=== PATIENT | male | born 1935 | race Caucasian/White ===

== ENCOUNTER 2018-05-04 14:45 | Emergency (ER) | payer OTHER, MEDICARE ==
[2018-05-04 15:18] LABS: BASO % 0.3 % (0.0-1.0); EOS # 0.3 10^3/uL (0.0-0.50); EOS % 4.2 % (0.0-3.0); HEMATOCRIT 41.6 % (42.0-52.0); HEMOGLOBIN 14.2 g/dl (13.5-17.5); IMMATURE GRANULOCYTE % 0.3 % (0-3.0); LYMPH # 2.4 10^3/uL (1.5-4.5); LYMPH % 39.5 % (24.0-44.0); MEAN CORPUSCULAR HEMOGLOBIN 31.4 pg (27.0-33.0); MEAN CORPUSCULAR HGB CONC 34.1 g/dl (32.0-36.5); MONO # 0.6 10^3/uL (0.0-0.8); MONO % 10.4 % (0.0-5.0); NEUTROPHILS # 2.8 10^3/uL (1.8-7.7); NEUTROPHILS % 45.3 % (36.0-66.0); PLATELET COUNT, AUTOMATED 255 10^3/uL (150-450); RED BLOOD COUNT 4.52 10^6/uL (4.30-6.10); RED CELL DISTRIBUTION WIDTH 12.9 % (11.5-14.5); WHITE BLOOD COUNT 6.2 10^3/uL (4.0-10.0)
[2018-05-04 15:30] LABS: ALBUMIN 3.6 GM/DL (3.2-5.2); ALBUMIN/GLOBULIN RATIO 1.06 (1.00-1.93); ALKALINE PHOSPHATASE 83 U/L (45-117); ALT/SGPT 19 U/L (12-78); ANION GAP 10 MEQ/L (8-16); AST/SGOT 22 U/L (7-37); BILIRUBIN,DIRECT 0.1 MG/DL (0.0-0.2); BILIRUBIN,TOTAL 0.5 MG/DL (0.2-1.0); BLOOD UREA NITROGEN 21 MG/DL (7-18); CALCIUM LEVEL 8.3 MG/DL (8.8-10.2); CARBON DIOXIDE LEVEL 25 MEQ/L (21-32); CHLORIDE LEVEL 108 MEQ/L (98-107); CPK CREATINE PHOSPHOKINASE 222 U/L (39-308); CREATININE FOR GFR 1.74 MG/DL (0.70-1.30); GLUCOSE, FASTING 114 MG/DL (70-100); MB/CK RELATIVE INDEX 1.71 (< OR =4); SODIUM LEVEL 143 MEQ/L (136-145); TROPONIN I < 0.02 NG/ML (< 0.10)
[2018-05-04] MEDS: DOXYCYCLINE HYCLATE 100 MG TAB PO (16:14)
[2018-05-04 17:41] LABS: CPK CREATINE PHOSPHOKINASE 205 U/L (39-308); MB/CK RELATIVE INDEX 1.66 (< OR =4); TROPONIN I < 0.02 NG/ML (< 0.10)
== END 2018-05-04 17:58 | disposition home or self-care (01) ==
LOC: M ED 14:45
DX: J01.90 Acute sinusitis, unspecified (principal); I12.9 Hypertensive chronic kidney disease with stage 1 through stage 4 chronic kidney disease, or unspecified chronic kidney disease; N18.3 Chronic kidney disease, stage 3 (moderate); M25.512 Pain in left shoulder
CPT/HCPCS: 71045

== ENCOUNTER 2019-09-27 10:41 | Inpatient (IN) | payer MEDICARE, OTHER ==
[~2019-09-27] VITALS: Ht 162.6 cm; Wt 57.6 kg
[~2019-09-27 10:41] MED LIST: DOXY100C37 PO
[2019-09-27 11:06] LABS: BASO % 0.4 % (0.0-1.0); EOS # 0.2 10^3/uL (0.0-0.5); EOS % 2.6 % (0.0-3.0); HEMATOCRIT 43.3 % (42.0-52.0); HEMOGLOBIN 14.4 g/dl (13.5-17.5); LYMPH # 2.3 10^3/uL (1.5-5.0); MEAN CORPUSCULAR HEMOGLOBIN 30.6 pg (27.0-33.0); MEAN CORPUSCULAR HGB CONC 33.3 g/dl (32.0-36.5); MEAN CORPUSCULAR VOLUME 91.9 fl (80.0-96.0); MONO # 0.7 10^3/uL (0.0-0.8); MONO % 8.5 % (0.0-5.0); NEUTROPHILS # 4.9 10^3/uL (1.5-8.5); NEUTROPHILS % 60.1 % (36.0-66.0); PLATELET COUNT, AUTOMATED 263 10^3/uL (150-450); RED BLOOD COUNT 4.71 10^6/uL (4.30-6.10); WHITE BLOOD COUNT 8.1 10^3/uL (4.0-10.0)
[2019-09-27 11:32] LABS: ALT/SGPT 37 U/L (12-78); BILIRUBIN,DIRECT 0.4 MG/DL (0.0-0.2); BILIRUBIN,TOTAL 0.8 MG/DL (0.2-1.0); CK-MB VALUE MASS 2.8 NG/ML (<3.6); CPK CREATINE PHOSPHOKINASE 189 U/L (39-308); LIPASE 151 U/L (73-393); MB/CK RELATIVE INDEX 1.48 (< OR =4); TROPONIN I < 0.02 NG/ML (< 0.10)
[2019-09-27] MEDS ORDERED: NS 500 ML IV ONE (12:00)
--- NOTE | 2019-09-27 14:05 | REP ---
CT ABDOMEN/PELVIS WITHOUT CONTRAST: CT abdomen/pelvis performed without oral or IV contrast. Sagittal and coronal reconstruction images are performed. Visualized lung bases demonstrate no infiltrate with bibasilar interstitial fibrotic change. Liver demonstrates a small cyst in the upper aspect of the left lobe. The gallbladder is moderately distended. There are large gallstones in the gallbladder. The largest measures 3.8 cm in diameter. There is no definite gallbladder wall thickening. However, there is dilatation of the central intrahepatic bilateral ducts as well as the common bile duct, maximally, the common bile duct measures 13 mm in diameter. There are four calculi seen in the common bile duct. Proximally, there is a 12 mm calculus. Distally, there are three calculi seen measuring 13 mm, 9 mm, and 9 mm in maximum diameter extending up to the ampulla of Vater. Spleen is normal in size with no gross intrinsic abnormality. The adrenal glands are normal. Pancreas is grossly unremarkable in appearance. There is no definite pancreatic duct dilatation. There is a cyst of the lower pole of the right kidney measuring 1.8 cm in diameter and a cyst of the upper pole of the left kidney measuring 2.4 cm in diameter. There is no hydronephrosis. There is moderate atherosclerotic calcification of the abdominal aorta without aneurysm. There is no adenopathy. There is no free air or free fluid. There is no bowel wall thickening. The appendix is normal. No pelvic mass is seen. Urinary bladder is grossly unremarkable. There is an old stable compression deformity of L1 with diffuse degenerative changes of the spine. IMPRESSION: Distended gallbladder containing multiple large stones, largest is 3.8 cm in diameter. There is intrahepatic and extrahepatic biliary dilatation, the common bile duct measures 12-13 mm in maximum diameter. There are four gallstones in the common bile duct, as discussed above, the largest measures 13 mm in diameter. Electronically Signed by Alexys Kemp MD 09/27/2019 06:50 P
--- NOTE | 2019-09-27 14:46 | REP ---
RIGHT UPPER QUADRANT ULTRASOUND: Real-time sonographic evaluation of right upper quadrant performed. Gallbladder is moderately distended. Large gallstones are seen in the gallbladder. There is a rounded hypoechoic structure in the fundus of the gallbladder which probably represents a ball of sludge with a maximum diameter of 2 cm. There is intrahepatic biliary dilatation. Common bile duct is dilated and measures up to 12 mm. Small hyperechoic echogenicities in the common bile duct appear to represent debris and probably an underlying stone. Liver demonstrates a cyst in the left lobe 1 cm in diameter. The pancreas could not be visualized. Right kidney is mildly atrophic with a length of 8.7 cm. There is no hydronephrosis. There is a cyst of the right kidney 2 cm in diameter. No free fluid is seen. IMPRESSION: Large gallstones and sludge ball seen in the gallbladder. Biliary dilatation up to 12 mm with internal debris and probable stone in the proximal common bile duct. Electronically Signed by Alexys Kemp MD 09/27/2019 06:54 P
[2019-09-27] MEDS ORDERED: MORPHINE 2 MG/ML 1ML VIAL (J2270) IV PRN (15:30)
--- NOTE | 2019-09-27 15:49 | HPEPDOC ---
General Date of Admission Sep 27, 2019 at 15:20 Date of Service: Sep 27, 2019 Chief Complaint The patient is a 83-year-old male admitted with a reason for visit of Biliary Colic. Source: Patient, Family, RN/MD, Old records History of Present Illness 83 [facility] male [facility] with PMH of Dementia presented to the ED with severe sudden onset upper abdominal pain and episode of syncope at home. Patient has dementia so not a good historian. His son who is at bed side tells me that he was ok in the morning had a good breakfast then about half an hour later he sat down in the living room couch clutching his abdomen and complained of severe pain and then passed out on his side on the couch and the son then called EMS. As per son he was probably out for about 2 minutes patient denies passing out. When EMS arrived in about 20 minutes he was awake and alert and could walk out to the ambulance. On my interview patient complained of dull aching pain in the epigastrium and right upper quadrant about 5/10 in intensity without any radiation. He described the pain as someone had punched him there. In the ED work up with CT abdomen showed Distended gallbladder containing multiple large stones, largest is 3.8 cm in diameter. There is intrahepatic and extrahepatic biliary dilatation, the common bile duct measures 12-13 mm in maximum diameter. There are four gallstones in the common bile duct, as discussed above, the largest measures 13 mm in diameter. US of gall bladder showed Large gallstones and sludge ball seen in the gallbladder. Biliary dilatation up to 12 mm with internal debris and probable stone. EKG was negative, cardiac enzymes were negative. Home Medications No Active Prescriptions or Reported Meds Allergies Coded Allergies: No Known Allergies (Unverified , 09/27/19) Past Medical History Medical History Dementia, CKD 3 Surgical History None Family History Significant Family History: No pertinent family hx discussed with patient and his son Social History * Smoker: Denies Alcohol: Denies Drugs: denies A-FIB/CHADSVASC A-FIB History Current/History of A-Fib/PAF?: No Review of Systems Constitutional: Denies: Chills, Fever, Night Sweats Eyes: Denies: Pain, Vision change ENT: Denies: Head Aches, Ear Pain, Dysphagia Skin: Denies: Rash, Lesions, Breakdown Pulmonary: Denies: Dyspnea, Cough Cardiovascular: Denies: Chest Pain, Palpitations, Orthopnea, Paroxysmal Noc. Dyspnea, Lt Headedness Gastrointestinal: Reports: Nausea, Abdominal Pain Genitourinary: Denies: Dysuria, Frequency, Incontinence, Retention Hematologic: Denies: Bruising, Bleeding Excessively Neurological: Denies: Weakness, Numbness, Change in speech Physical Examination General Exam: Positive: Alert, Cooperative, No Acute Distress Eye Exam: Positive: PERRLA, Conjunctiva & lids normal, EOMI; Negative: Sclera icteric ENT Exam: Positive: Atraumatic, Mucous membr. moist/pink, Pharynx Normal Neck Exam: Positive: Supple; Negative: JVD, thyromegaly Chest Exam: Positive: Clear to auscultation, Normal air movement Heart Exam: Positive: Rate Normal, Regular Rhythm, Normal S1, Normal S2; Negative: Murmurs, Rubs Telemetry: Positive: No significant arrhythmia Abdomen Exam: Positive: Normal bowel sounds, Soft, Tenderness (in the epigastrium and right upper quadrant.) Extremity Exam: Positive: Normal pulses; Negative: Clubbing, Cyanosis, Edema Skin Exam: Positive: Nl turgor and temperature; Negative: Breakdown, Lesion Neuro Exam: Positive: Normal Speech, Strength at 5/5 X4 ext, Normal Tone, Sensation Intact Psych Exam: Positive: Mood NL, Oriented x 3 Vital Signs Vital Signs Date Time Temp Pulse Resp B/P (MAP) Pulse Ox O2 Delivery O2 Flow Rate FiO2 09/27/19 14:30 97.6 66 20 184/79 (114) 98 Room Air Laboratory Data Labs 24H Laboratory Tests 2 09/27/19 10:58: Immature Granulocyte % (Auto) 0.4, Neutrophils (%) (Auto) 60.1, Lymphocytes (%) (Auto) 28.0, Monocytes (%) (Auto) 8.5H, Eosinophils (%) (Auto) 2.6, Basophils (%) (Auto) 0.4, Neutrophils # (Auto) 4.9, Lymphocytes # (Auto) 2.3, Monocytes # (Auto) 0.7, Eosinophils # (Auto) 0.2, Basophils # (Auto) 0.0, Nucleated Red Blood Cells % (auto) 0.0, Total Bilirubin 0.8, Direct Bilirubin 0.4H, Aspartate Amino Transf (AST/SGOT) 56H, Alanine Aminotransferase (ALT/SGPT) 37, Alkaline Phosphatase 95, Total Creatine Kinase 189, Creatine Kinase MB 2.8, Creatine Kinase MB Relative Index 1.48, Troponin I < 0.02, Total Protein 7.0, Albumin 4.0, Albumin/Globulin Ratio 1.33, Lipase 151 09/27/19 11:00: POC Glucose (Misc Panel) 125H, POC Sodium (Misc Panel) 140, POC Potassium (Misc Panel) 4.1, POC Chloride (Misc Panel) 107, POC Total CO2 (Misc Panel) 22.0L, POC Blood Urea Nitrogen (Misc Panel 23, POC Ionized Calcium (Misc Panel) 4.4L, POC Creatinine (Misc Panel) 1.7H, POC Hematocrit (Misc Panel) 42.0 CBC/BMP Laboratory Tests 09/27/19 10:58 Assessment/Plan 83 [facility] male [facility] patient with PMH of Dementia presented to the ED with severe sudden onset upper abdominal pain and episode of syncope at home. Patient has dementia so not a good historian. His son who is at bed side tells me that he was ok in the morning had a good breakfast then about half an hour later he sat down in the living room couch clutching his abdomen and complained of severe pain and then passed out on his side on the couch and the son then called EMS. As per son he was probably out for about 2 minutes patient denies passing out. When EMS arrived in about 20 minutes he was awake and alert and could walk out to the ambulance. On my interview patient complained of dull aching pain in the epigastrium and right upper quadrant about 5/10 in intensity without any radiation. He described the pain as someone had punched him there. In the ED work up with CT abdomen showed Distended gallbladder containing multiple large stones, largest is 3.8 cm in diameter. There is intrahepatic and extrahepatic biliary dilatation, the common bile duct measures 12-13 mm in maximum diameter. There are four gallstones in the common bile duct, as discussed above, the largest measures 13 mm in diameter. US of gall bladder showed Large gallstones and sludge ball seen in the gallbladder. Biliary dilatation up to 12 mm with internal debris and probable stone. Pateint was admitted for possible Biliary colic and syncope. Biliary colic with Gall stones and CBD stones No signs of symptoms of cholangitis. will give bowel rest with only clear liquids IVF. pain control with morphine, zofran and pantoprazole Dr Madden onsulted for possible requirement of ERCP Syncope this is possibly vasovagal from severe episode of pain will monitor under telemetry will cycle cardiac enzymes will get a CT head orthostatic vitals. CKD stage 3 creatinine at baseline. Dementia not on any meds independent in ADLS, poor short term memory. Ambulatory Does not wander. Plan / VTE VTE Prophylaxis Ordered?: Yes KORY HOWELL MD Sep 27, 2019 15:49
[2019-09-27] MEDS ORDERED: traZODone 25MG PER 1/2 TABLET PO PRN (16:00)
[2019-09-27] MEDS ORDERED: ACETAMINOPHEN TAB 650MG DOSE (2X325MG) PO PRN (16:00)
[2019-09-27 16:50] VITALS: BP 149/72
[2019-09-27] MEDS: ENOXAPARIN 30 MG/0.3 ML SYR (J1650) SC SCH (17:47)
[2019-09-27] MEDS: LR 1,000 ML IV SCH (17:47)
[2019-09-27] MEDS: PANTOPRAZOLE 40MG INJ (PROTONIX) (C9113) IV SCH (17:47)
[2019-09-27] MEDS: ONDANSETRON 4MG/2ML VIAL (J2405) IV SCH ×2 (17:47→23:51)
--- NOTE | 2019-09-27 17:53 | ECGEPIP ---
[facility] - ED Test Date: 2019-09-27 Pat Name: ROXY CHANG Department: Room: - Gender: Male [place]: west : 1935 Requested By: Thania Martinez Order Number: [id number] Reading MD: Thania Martinez Measurements Intervals [place] Rate: 68 P: 54 [place]: 142 QRS: 25 QRSD: 78 T: 41 QT: 421 QTc: 448 Interpretive Statements SINUS RHYTHM NSTTW abnormalities baseline artifact may affect interpretation SIMILAR 05/04/18 Electronically Signed on 09-27-2019 17:53:54 EST by Thania Martinez
[2019-09-27 18:40] VITALS: BP_SYST 115; BP_SYST 131; BP_SYST 134; BP_DIAS 69; BP_DIAS 70; BP_DIAS 71
[2019-09-27 19:30] LABS: CK-MB VALUE MASS 2.3 NG/ML (<3.6); CPK CREATINE PHOSPHOKINASE 157 U/L (39-308); MB/CK RELATIVE INDEX 1.46 (< OR =4); TROPONIN I < 0.02 NG/ML (< 0.10)
[2019-09-27 22:00] VITALS: BP 115/76
[2019-09-28 06:00] VITALS: BP_SYST 120; BP_SYST 125; BP_SYST 127; BP_DIAS 59; BP_DIAS 60
[2019-09-28] MEDS: ONDANSETRON 4MG/2ML VIAL (J2405) IV SCH ×3 (06:15→17:56)
[2019-09-28] MEDS: LR 1,000 ML IV SCH ×2 (06:16→20:01)
[2019-09-28 06:34] LABS: BASO % 0.2 % (0.0-1.0); EOS % 0.2 % (0.0-3.0); HEMATOCRIT 37.8 % (42.0-52.0); HEMOGLOBIN 12.6 g/dl (13.5-17.5); LYMPH # 1.5 10^3/uL (1.5-5.0); MEAN CORPUSCULAR HEMOGLOBIN 30.9 pg (27.0-33.0); MEAN CORPUSCULAR HGB CONC 33.3 g/dl (32.0-36.5); MEAN CORPUSCULAR VOLUME 92.6 fl (80.0-96.0); MONO # 0.8 10^3/uL (0.0-0.8); MONO % 7.4 % (0.0-5.0); NEUTROPHILS # 8.9 10^3/uL (1.5-8.5); NEUTROPHILS % 78.7 % (36.0-66.0); PLATELET COUNT, AUTOMATED 222 10^3/uL (150-450); RED BLOOD COUNT 4.08 10^6/uL (4.30-6.10); WHITE BLOOD COUNT 11.3 10^3/uL (4.0-10.0)
[2019-09-28 06:42] LABS: INR 1.42; PROTHROMBIN TIME 17.1 SECONDS (11.8-14.0)
[2019-09-28 06:43] LABS: PARTIAL THROMBOPLASTIN TIME 33.7 SECONDS (25.0-38.4)
[2019-09-28 06:53] LABS: BILIRUBIN,TOTAL 3.8 MG/DL (0.2-1.0); CALCIUM LEVEL 8.3 MG/DL (8.8-10.2); CREATININE FOR GFR 1.65 MG/DL (0.70-1.30); GLOMERULAR FILTRATION RATE 42.4 (>35); POTASSIUM SERUM 4.2 MEQ/L (3.5-5.1)
--- NOTE | 2019-09-28 08:07 | REP ---
CT BRAIN WITHOUT CONTRAST: CT brain performed without IV contrast. Coronal reconstruction images are performed. COMPARISON: 05/04/2018 There is moderate atrophy again noted. There is no midline shift or mass effect. Kemp-white differentiation is well maintained. Periventricular small vessel ischemic changes are stable and chronic in nature. There is no intracranial hemorrhage or extra-axial fluid collection. Vascular calcifications are seen in the carotid siphons. There is complete opacification of the bilateral frontal and ethmoid sinuses, as seen on prior study. There is extensive opacification of the visualized right maxillary sinus. Anterior right sphenoid sinus is opacified. IMPRESSION: Atrophy with no acute intracranial hemorrhage or other acute intracranial abnormality. Stable chronic small vessel ischemic changes in the periventricular white matter. Chronic sinusitis changes. Electronically Signed by Alexys Kemp MD 09/28/2019 06:08 P
[2019-09-28] MEDS ORDERED: ENOXAPARIN 30 MG/0.3 ML SYR (J1650) SC SCH (09:00)
--- NOTE | 2019-09-28 11:56 | IPNPDOC ---
Subjective Date Seen The patient was seen on 09/28/19. Subjective Chief Complaint/HPI Patient says that the pain is unchanged. No worse. No nausea. though does not have any appetite. No diarrhea. Objective Physical Examination General Exam: Positive: Alert, Cooperative, No Acute Distress Eye Exam: Positive: PERRLA, Conjunctiva & lids normal, EOMI; Negative: Sclera icteric ENT Exam: Positive: Atraumatic, Mucous membr. moist/pink, Pharynx Normal Neck Exam: Positive: Supple; Negative: JVD, thyromegaly Chest Exam: Positive: Clear to auscultation, Normal air movement Heart Exam: Positive: Rate Normal, Regular Rhythm, Normal S1, Normal S2; Negative: Murmurs, Rubs Telemetry: Positive: No significant arrhythmia Abdomen Exam: Positive: Normal bowel sounds, Soft, Tenderness (in the epigastrium and right upper quadrant.) Extremity Exam: Positive: Normal pulses; Negative: Clubbing, Cyanosis, Edema Skin Exam: Positive: Nl turgor and temperature; Negative: Breakdown, Lesion Neuro Exam: Positive: Normal Speech, Strength at 5/5 X4 ext, Normal Tone, Sensation Intact Psych Exam: Positive: Mood NL, Oriented x 3 Assessment /Plan Assessment 83 [facility] male [facility] patient with PMH of Dementia presented to the ED with severe sudden onset upper abdominal pain and episode of syncope at home. Patient has d ementia so not a good historian. His son who is at bed side tells me that he was ok in the morning had a good breakfast then about half an hour later he sat down in the living room couch clutching his abdomen and complained of severe pain and then passed out on his side on the couch and the son then called EMS. As per son he was probably out for about 2 minutes patient denies passing out. When EMS arrived in about 20 minutes he was awake and alert and could walk out to the ambulance. On my interview patient complained of dull aching pain in the epigastrium and right upper quadrant about 5/10 in intensity without any radiation. He described the pain as someone had punched him there. In the ED work up with CT abdomen showed Distended gallbladder containing multiple large stones, largest is 3.8 cm in diameter. There is intrahepatic and extrahepatic biliary dilatation, the common bile duct measures 12-13 mm in maximum diameter. There are four gallstones in the common bile duct, as discus sed above, the largest measures 13 mm in diameter. US of gall bladder showed Large gallstones and sludge ball seen in the gallbladder. Biliary dilatation up to 12 mm with internal debris and probable stone. Pateint was admitted for possible Biliary colic and syncope. Biliary colic with Gall stones and CBD stones will give bowel rest with only clear liquids IVF. pain control with morphine, zofran and pantoprazole Dr Madden for ERCp tomorrow. having low grade fiver last night and LFTs again elevated. WBC also elevated from yesterday ? possible cholangitis will give cipro and flagyl. Syncope this is possibly vasovagal from severe episode of pain will monitor under telemetry will cycle cardiac enzymes will get a CT head orthostatic vitals. CKD stage 3 creatinine at baseline. Dementia not on any meds independent in ADLS, poor short term memory. Ambulatory Does not wander. Plan/VTE VTE Prophylaxis Ordered?: Yes VS, I&O, 24H, Fishbone Vital Signs/I&O Vital Signs Date Time Temp Pulse Resp B/P (MAP) Pulse Ox O2 Delivery O2 Flow Rate FiO2 09/28/19 06:00 81 127/59 (81) 83 125/60 (81) 88 120/60 (80) 09/28/19 06:00 99.5 18 93 Room Air I&O- Last 24 Hours up to 6 AM 09/28/19 06:00 Intake Total 1400 ml Output Total 200 ml Balance 1200 ml Laboratory Data 24H LABS Laboratory Tests 2 09/27/19 18:49: Total Creatine Kinase 157, Creatine Kinase MB 2.3, Creatine Kinase MB Relative Index 1.46, Troponin I < 0.02 09/28/19 05:35: Immature Granulocyte % (Auto) 0.5, Neutrophils (%) (Auto) 78.7H, Lymphocytes (%) (Auto) 13.0L, Monocytes (%) (Auto) 7.4H, Eosinophils (%) (Auto) 0.2, Basophils (%) (Auto) 0.2, Neutrophils # (Auto) 8.9H, Lymphocytes # (Auto) 1.5, Monocytes # (Auto) 0.8, Eosinophils # (Auto) 0.0, Basophils # (Auto) 0.0, Nucleated Red Blood Cells % (auto) 0.0, Prothrombin Time 17.1H, Prothromb Time International Ratio 1.42, Activated Partial Thromboplast Time 33.7, Anion Gap 7L, Glomerular Filtration Rate 42.4, Calcium Level 8.3L, Total Bilirubin 3.8#H, Aspartate Amino Transf (AST/SGOT) 251H, Alanine Aminotransferase (ALT/SGPT) 296H, Alkaline Phosphatase 111, Total Protein 6.0L, Albumin 3.0#L, Albumin/Globulin Ratio 1.00 CBC/BMP Laboratory Tests 09/28/19 05:35 KORY HOWELL MD Sep 28, 2019 11:56
[2019-09-28] MEDS ORDERED: CIPROFLOXACIN 400 MG in IV 1 EA IV SCH (12:00)
[2019-09-28] MEDS: metroNIDAZOLE 500 MG in IV 1 EA IV SCH ×2 (13:02→20:01)
[2019-09-28 14:00] VITALS: BP 117/68
--- NOTE | 2019-09-28 14:25 | CR.PDOC ---
General Date of Consultation: Sep 28, 2019 Referring Provider: KORY HOWELL MD Attending Physician: JAZZMINE MILNER MD Consultation Primary physician/ hospitalist: Reason for consult: HPI: 83 year [facility] male patient ([facility]) with mild dementia ( Alert and oriented x 3 but does not recall specific details and unable to provide detailed history) not on any medications at home, labs showed CKD stage III, was brought in by his eldest son, (who lives with him) for acute onset severe upper abdominal pain and episode of syncope at home. Patient was noted to have calcified gallstones and CBD stones on CT abdomen and GI is consulted for the same. Patient when examined on floor reports no further pain, and denies any nausea or vomiting even with the initial episode at home. Patient does not appers to be in distress and specifically denies any abdominal pain. Patient was also noted with mild transaminitis in ER. . As per patients son, patient did also pass out whe haing thi pain, but patient denies any passing out. Pertinent negative GI symptoms: Patient denies fever, sick contacts, recent travel, nausea, vomiting, diarrhea, loss of appetite, early satiety or unintentional weight loss. No history of hematemesis, melena or hematochezia. Patient reports regular bowel movements. Review of Systems: GI: as stated above CVS: No chest pain, No palpitations, No leg swelling. RS: No Shortness of breath, No Wheezing, no cough QUALITY WORKER: No dizziness, No motor weakness, No sensory problems Hematology: No bruising, No gum bleeding, Musculoskeletal: No joint pain, ambulating well. Skin: No rash : No hematuria, No burning sensation of the urine ENT: No ear discharge/ pain, No dysphagia. Eyes: No photophobia. Jaundice Home medications: reviewed. Antithrombotic agents - None Medical h/o: As above. Surgical h/o: None on abdomen. Prior h/o renal stones therapy. Social h/o: Alcohol Denies, smoking denies, IVDA/ drugs Denies . Family h/o of GI cancers - None Prior Endoscopies: none. Prior GI evaluations: None in [facility]. Exam: Vitals: reviewed General: Alert and oriented x 3, but due to dementia does not recall details of history when asked., not in distress HEENT: NO pallor, no icterus. Normal oropharynx, NO cervical lymph nodes. Chest: symmetric with bilateral clear air entry, CVS: S1, S2 heard, normal, no murmurs . Abdomen: non-distended, no surgical scars, soft, non-tender, no palpable masses, normal bowel sounds heard. Rectal exam: Patient refused / Deferred at this time in view of scheduled colonoscopy. Extremities: no pedal edema, pulses palpable. QUALITY WORKER: no focal motor or sensory deficits. Moves all extremities Skin: no rash. Labs: reviewed. Imaging: reviewed. CT abdomen showed Distended gallbladder containing multiple large stones, largest is 3.8 cm in diameter. There is intrahepatic and extrahepatic biliary dilatation, the common bile duct measures 12-13 mm in maximum diameter. There are four gallstones in the common bile duct, as discussed above, the largest measures 13 mm in diameter. US of gall bladder showed Large gallstones and sludge ball seen in the gallbladder. Biliary dilatation up to 12 mm with internal debris and probable s tone Impression: - Acute onset epigastric pain with labs showing cholestasis an CT abdomen showing calcified CBD stones and gallstones Needs further management. DDx -- symptomatic choledocholithiasis vs cholecystitis. Normal WBC counts and no fever -- less likely cholangitis. Recommendations: - Patient educated about the test results, possible differential diagnoses and All questions answered. - Clear liquid diet or low fat diet for now. - Obtain daily labs to monitor for sepsis and blood cultures. Consider empiric antibiotics if any change in status. - Will schedule the ERCP on Sunday. - The procedure, indications, risks (acute pancreatitis and its complicaitons, bleeding, perforation, infection, hypotension, respiratory depression, allergy, need for endotracheal intubation, surgery, colostomy, cardiac arrest, even ), benefits, limitations (e.g., missing a lesion), and all other alternatives (including no intervention) were explained to the patient and his sons. All verbalized understanding. Patients eldest son said he is the HCP and will come and sign consent tomorrow. Plan of care discussed with patient and primary team. Patient verbalized understanding and agreed with the plan. Addendum:09/28/2019: Repeat labs reviewed today. Noted slight worsening transaminitis and elevated bilirubin. Patient denies any abdominal pain and no actual fever reported ( even thoug a temp of 100 is documented in chart). Agree with starting empiric antibiotics and if any worsening or WBC Or Liver panel will consider sooner ERCP or else will proceed with planned ERCP on Sunday. Vital Signs/I&O Vital Signs Date Time Temp Pulse Resp B/P (MAP) Pulse Ox O2 Delivery O2 Flow Rate FiO2 09/28/19 06:00 81 127/59 (81) 83 125/60 (81) 88 120/60 (80) 09/28/19 06:00 99.5 18 93 Room Air I&O- Last 24 Hours up to 6 AM 09/28/19 05:59 Intake Total 950 ml Output Total 200 ml Balance 750 ml Laboratory Data CBC/BMP Laboratory Tests 09/28/19 05:35 Allergies Coded Allergies: No Known Allergies (Unverified , 09/27/19) Home Medications No Active Prescriptions or Reported Meds JAZZMINE MILNER MD Sep 28, 2019 14:25
[2019-09-28] MEDS: CIPROFLOXACIN 200 MG in IV 1 EA IV SCH (14:49)
[2019-09-28 17:13] LABS: BASO % 0.3 % (0.0-1.0); EOS # 0.1 10^3/uL (0.0-0.5); EOS % 0.6 % (0.0-3.0); HEMATOCRIT 37.6 % (42.0-52.0); HEMOGLOBIN 12.4 g/dl (13.5-17.5); LYMPH # 1.3 10^3/uL (1.5-5.0); MEAN CORPUSCULAR HEMOGLOBIN 31.2 pg (27.0-33.0); MEAN CORPUSCULAR VOLUME 94.7 fl (80.0-96.0); MONO # 0.7 10^3/uL (0.0-0.8); MONO % 9.2 % (0.0-5.0); NEUTROPHILS # 5.8 10^3/uL (1.5-8.5); NEUTROPHILS % 73.5 % (36.0-66.0); PLATELET COUNT, AUTOMATED 203 10^3/uL (150-450); RED BLOOD COUNT 3.97 10^6/uL (4.30-6.10); WHITE BLOOD COUNT 7.8 10^3/uL (4.0-10.0)
[2019-09-28 17:43] LABS: ALBUMIN 3.1 GM/DL (3.2-5.2); BILIRUBIN,DIRECT 3.3 MG/DL (0.0-0.2); BILIRUBIN,TOTAL 4.4 MG/DL (0.2-1.0); CREATININE FOR GFR 1.78 MG/DL (0.70-1.30); GLOMERULAR FILTRATION RATE 38.9 (>35); TOTAL PROTEIN 6.3 GM/DL (6.4-8.2)
[2019-09-28] MEDS: PANTOPRAZOLE 40MG INJ (PROTONIX) (C9113) IV SCH (17:56)
[2019-09-28] MEDS: ENOXAPARIN 30 MG/0.3 ML SYR (J1650) SC SCH (17:57)
[2019-09-28 21:00] VITALS: BP_SYST 116; BP_SYST 119; BP_SYST 122; BP_DIAS 60; BP_DIAS 61
[2019-09-28 22:00] VITALS: BP 112/58
[2019-09-29] MEDS: ONDANSETRON 4MG/2ML VIAL (J2405) IV SCH ×5 (00:47→23:11)
[2019-09-29] MEDS: CIPROFLOXACIN 200 MG in IV 1 EA IV SCH ×2 (01:26→14:01)
[2019-09-29] MEDS: metroNIDAZOLE 500 MG in IV 1 EA IV SCH ×3 (05:00→21:46)
[2019-09-29 06:00] VITALS: BP 114/61
[2019-09-29 06:02] LABS: BASO % 0.3 % (0.0-1.0); EOS # 0.1 10^3/uL (0.0-0.5); EOS % 2.2 % (0.0-3.0); HEMATOCRIT 32.7 % (42.0-52.0); HEMOGLOBIN 11.1 g/dl (13.5-17.5); LYMPH % 16.8 % (24.0-44.0); MEAN CORPUSCULAR HEMOGLOBIN 31.6 pg (27.0-33.0); MEAN CORPUSCULAR HGB CONC 33.9 g/dl (32.0-36.5); MEAN CORPUSCULAR VOLUME 93.2 fl (80.0-96.0); MONO # 0.6 10^3/uL (0.0-0.8); MONO % 10.7 % (0.0-5.0); NEUTROPHILS # 4.1 10^3/uL (1.5-8.5); NEUTROPHILS % 69.7 % (36.0-66.0); PLATELET COUNT, AUTOMATED 181 10^3/uL (150-450); RED BLOOD COUNT 3.51 10^6/uL (4.30-6.10); WHITE BLOOD COUNT 5.9 10^3/uL (4.0-10.0)
[2019-09-29 07:30] LABS: ALBUMIN 2.4 GM/DL (3.2-5.2); BILIRUBIN,TOTAL 3.5 MG/DL (0.2-1.0); CALCIUM LEVEL 7.9 MG/DL (8.8-10.2); CREATININE FOR GFR 1.67 MG/DL (0.70-1.30); GLOMERULAR FILTRATION RATE 41.8 (>35); POTASSIUM SERUM 4.3 MEQ/L (3.5-5.1); TOTAL PROTEIN 5.3 GM/DL (6.4-8.2)
[2019-09-29] MEDS: LR 1,000 ML IV SCH ×2 (10:03→23:11)
--- NOTE | 2019-09-29 11:52 | IPNPDOC ---
Subjective Date Seen The patient was seen on 09/29/19. Subjective Chief Complaint/HPI No new complaints this morning. His belly still bothers him but not bad. No fever or chills this am . No nausea or vomtiing. Objective Physical Examination General Exam: Positive: Alert, Cooperative, No Acute Distress Eye Exam: Positive: PERRLA, Conjunctiva & lids normal, EOMI ENT Exam: Positive: Atraumatic, Mucous membr. moist/pink, Pharynx Normal Neck Exam: Positive: Supple Chest Exam: Positive: Clear to auscultation, Normal air movement Heart Exam: Positive: Rate Normal, Regular Rhythm, Normal S1, Normal S2 Telemetry: Positive: No significant arrhythmia Abdomen Exam: Positive: Normal bowel sounds, Soft, Tenderness Extremity Exam: Positive: Normal pulses Skin Exam: Positive: Nl turgor and temperature Neuro Exam: Positive: Normal Speech, Strength at 5/5 X4 ext, Normal Tone, Sensation Intact Psych Exam: Positive: Mood NL, Oriented x 3 Assessment /Plan Assessment 83 [facility] patient with PMH of Dementia presented to the ED with severe sudden onset upper abdominal pain and episode of syncope at home. Patient has dementia so not a good historian. His son who is at bed side tells me that he was ok in the morning had a good breakfast then about half an hour later he sat down in the living room couch clutching his abdomen and complained of severe pain and then passed out on his side on the couch and the son then called EMS. As per son he was probably out for about 2 minutes patient denies passing out. When EMS arrived in about 20 minutes he was awake and alert and could walk out to the ambulance. On my interview patient complained of dull aching pain in the epigastrium and right upper quadrant about 5/10 in intensity without any radiation. He described the pain as someone had punched him there. In the ED work up with CT abdomen showed Distended gallbladder containing multiple large stones, largest is 3.8 cm in diameter. There is intrahepatic and extrahepatic biliary dilatation, the common bile duct measures 12-13 mm in maximum diameter. There are four gallstones in the common bile duct, as discussed above, the largest measures 13 mm in diameter. US of gall bladder showed Large gallstones and sludge ball seen in the gallbladder. Biliary dilatation up to 12 mm with internal debris and probable stone. Pateint was admitted for possible Biliary colic and syncope. Biliary colic with Gall stones and CBD stones will give bowel rest with only clear liquids IVF. pain control with morphine, zofran and pantoprazole Dr Madden for ERCP having low grade fever and LFTs again elevated. WBC also elevated ? possible cholangitis will give cipro and flagyl. Syncope this is possibly vasovagal from severe episode of pain No events on telemetry. CT head negative orthostatic vitals negative CKD stage 3 creatinine at baseline. Dementia not on any meds independent in ADLS, poor short term memory. Ambulatory Does not wander. Plan/VTE VTE Prophylaxis Ordered?: Yes VS, I&O, 24H, Fishbone Vital Signs/I&O Vital Signs Date Time Temp Pulse Resp B/P (MAP) Pulse Ox O2 Delivery O2 Flow Rate FiO2 09/29/19 06:00 98.9 69 17 114/61 (78) 95 Room Air I&O- Last 24 Hours up to 6 AM 09/29/19 06:00 Intake Total 2960 ml Balance 2960 ml Laboratory Data 24H LABS Laboratory Tests 2 09/28/19 16:58: Immature Granulocyte % (Auto) 0.4, Neutrophils (%) (Auto) 73.5H, Lymphocytes (%) (Auto) 16.0L, Monocytes (%) (Auto) 9.2H, Eosinophils (%) (Auto) 0.6, Basophils (%) (Auto) 0.3, Neutrophils # (Auto) 5.8, Lymphocytes # (Auto) 1.3L, Monocytes # (Auto) 0.7, Eosinophils # (Auto) 0.1, Basophils # (Auto) 0.0, Nucleated Red Blood Cells % (auto) 0.0, Glomerular Filtration Rate 38.9, Total Bilirubin 4.4H, Direct Bilirubin 3.3H, Aspartate Amino Transf (AST/SGOT) 165H, Alanine Aminotransferase (ALT/SGPT) 243H, Alkaline Phosphatase 107, Total Protein 6.3L, Albumin 3.1L, Albumin/Globulin Ratio 0.97L 09/29/19 05:15: Immature Granulocyte % (Auto) 0.3, Neutrophils (%) (Auto) 69.7H, Lymphocytes (%) (Auto) 16.8L, Monocytes (%) (Auto) 10.7H, Eosinophils (%) (Auto) 2.2, Basophils (%) (Auto) 0.3, Neutrophils # (Auto) 4.1, Lymphocytes # (Auto) 1.0L, Monocytes # (Auto) 0.6, Eosinophils # (Auto) 0.1, Basophils # (Auto) 0.0, Nucleated Red Blood Cells % (auto) 0.0, Glomerular Filtration Rate 41.8, Total Bilirubin 3.5H, Aspartate Amino Transf (AST/SGOT) 116H, Alanine Aminotransferase (ALT/SGPT) 187H, Alkaline Phosphatase 96, Total Protein 5.3L, Albumin 2.4#L, Albumin/Globulin Ratio 0.83L, Anion Gap 4L, Calcium Level 7.9L CBC/BMP Laboratory Tests 09/28/19 16:58 09/29/19 05:15 KORY HOWELL MD Sep 29, 2019 11:52
[2019-09-29] MEDS ORDERED: ISOVUE-300 61% 50ML VIAL (Q9967) As Ordered ONE (13:24)
[2019-09-29 14:00] VITALS: BP 138/77
[2019-09-29] MEDS ORDERED: ROCURONIUM BROMIDE 50 MG/5 ML VIAL As Ordered ONE (16:43)
[2019-09-29] MEDS ORDERED: LIDOCAINE 2% INJ 100 MG/5 ML SDV (FOR ANES.) As Ordered ONE (16:43)
[2019-09-29] MEDS ORDERED: fentaNYL 100 MCG/2 ML INJECTION (J3010) As Ordered ONE (16:43)
[2019-09-29] MEDS ORDERED: ONDANSETRON 4MG/2ML VIAL (J2405) As Ordered ONE (16:43)
[2019-09-29] MEDS ORDERED: dexameTHASONE 4 MG/ML 1ML VIAL (J1100) As Ordered ONE (16:43)
[2019-09-29] MEDS ORDERED: propofoL 200 MG/20 ML VIAL As Ordered ONE (16:43)
[2019-09-29] MEDS ORDERED: SUGAMMADEX SODIUM 500 MG/5 ML VIAL (BRIDION) As Ordered ONE (16:44)
--- NOTE | 2019-09-29 18:14 | ROOR ---
Patient Name: John Momin Procedure Date: 09/29/2019 4:29 PM Date of : 1935 Age: 83 Room: Main OR Gender: Male Note Status: Finalized Procedure: ERCP Indications: Bile duct stone(s), Elevated liver enzymes Providers: Christian Madden MD Referring MD: 2. Inpatient 2. Inpatient Requesting Provider: Medicines: General Anesthesia Complications: No immediate complications. Procedure: Pre-Anesthesia Assessment: - Prior to the procedure, a History and Physical was performed, and patient medications and allergies were reviewed. The patient is competent. The risks and benefits of the procedure and the sedation options and risks were discussed with the patient. All questions were answered and informed consent was obtained. Patient identification and proposed procedure were verified by the physician, the nurse and the anesthesiologist in the procedure room. Mental Status Examination: alert and oriented. Airway Examination: normal oropharyngeal airway and neck mobility. Respiratory Examination: clear to auscultation. CV Examination: normal. Prophylactic Antibiotics: The patient does not require prophylactic antibiotics. Prior Anticoagulants: The patient has taken no previous anticoagulant or antiplatelet agents. ASA Grade Assessment: III - A patient with severe systemic disease. After reviewing the risks and benefits, the patient was deemed in satisfactory condition to undergo the procedure. The anesthesia plan was to use general anesthesia. Immediately prior to administration of medications, the patient was re-assessed for adequacy to receive sedatives. The heart rate, respiratory rate, oxygen saturations, blood pressure, adequacy of pulmonary ventilation, and response to care were monitored throughout the procedure. The physical status of the patient was re-assessed after the procedure. The Duodenoscope was introduced through the mouth, and advanced to the duodenum and used to inject contrast into the bile duct. The ERCP was accomplished without difficulty. The patient tolerated the procedure well. Findings: The speeder operator film was normal. The esophagus was successfully intubated under direct vision. The scope was advanced from the mouth to the duodenum. The pharynx, larynx and associated structures, as well as the upper GI tract, were normal. The upper GI tract was traversed under direct vision without detailed examination. Multiple large non-bleeding diverticula were found in the second portion of the duodenum and in the area of the papilla. The major papilla was adjacent to a diverticulum. The major papilla was bulging. A 0.035 inch x 260 cm straight Hydra Jagwire was passed into the biliary tree. The short-nosed traction sphincterotome was passed over the guidewire and the bile duct was then deeply cannulated. Contrast was injected. I personally interpreted the bile duct images. Ductal flow of contrast was adequate. Image quality was adequate. Contrast extended to the entire biliary tree. The main bile duct contained four stones, the largest of which was 12 mm in diameter. The main bile duct was diffusely dilated, with a stone causing an obstruction. The largest diameter was 14 mm. Biliary sphincterotomy was made with a monofilament traction (standard) sphincterotome using ERBE electrocautery. There was no post-sphincterotomy bleeding. Lithotripsy with a basket-type device was successful. The biliary tree was swept with a 12 mm balloon starting at the bifurcation. All stones were removed. Occlusion cholangiogram at the end of the procedure did not show any residual filling defects. Pancreatic duct was neither cannulated nor opacified. Impression: - Multiple Non-bleeding duodenal diverticula. - The major papilla was adjacent to a diverticulum. - The major papilla appeared to be bulging. - The entire main bile duct was dilated, with a stones causing obstruction. - Choledocholithiasis was found. Complete removal was accomplished by biliary sphincterotomy, mechanical lithotripsy and balloon extraction. - A biliary sphincterotomy was performed. - Lithotripsy was successful. - The biliary tree was swept. Recommendation: - The patient will be observed post-procedure, until all discharge criteria are met. - Patient has a contact number available for emergencies. The signs and symptoms of potential delayed complications were discussed with the patient. Return to normal activities tomorrow. Written discharge instructions were provided to the patient. - Return patient to [facility] for [facility] care. - Avoid aspirin and nonsteroidal anti-inflammatory medicines. - NPO for 1 day, then advance as tolerated to clear liquid diet. - High fiber diet after cleared by GI. - Use Protonix (pantoprazole) 40 mg IV BID for 1 day. - Check liver enzymes (AST, ALT, alkaline phosphatase, bilirubin) and hemogram with white blood cell count and platelets q 8 hours for one day. - Telephone endoscopist if symptomatic today. - Refer to a surgeon tomorrow for evaluation for cholecystectomy. - Return to GI clinic if persistent symptoms or new symptoms. - Return to primary care physician. Christian Madden MD Christian Madden MD 09/29/2019 6:14:01 PM Electronically signed by Christian Madden MD Number of Addenda: 0 Note Initiated On: 09/29/2019 4:29 PM Estimated Blood Loss: Estimated blood loss: none.
[2019-09-29] MEDS ORDERED: LR 1,000 ML IV SCH (18:15)
[2019-09-29] MEDS ORDERED: ONDANSETRON 4MG/2ML VIAL (J2405) IV PRN (18:15)
[2019-09-29] MEDS ORDERED: fentaNYL 100 MCG/2 ML INJECTION (J3010) IV PRN (18:15)
[2019-09-29] MEDS ORDERED: oxyCODONE 5MG TAB PO PRN (18:15)
[2019-09-29 18:43] VITALS: BP 165/76
[2019-09-29] MEDS ORDERED: LR 1,000 ML IV ONE (19:00)
--- NOTE | 2019-09-29 19:06 | REP ---
ERCP: 120 images. Tree: Calcified gallstones. 1 minute 22 seconds of fluoroscopy time is reported. Findings: A sequence of 120 last image hold fluoroscopically obtained spot radiographs of the right upper quadrant document cannulation and contrast injection of the common bile duct with multiple common bile duct stones, guidewire and basket retrieval manipulation. Electronically Signed by Juanito Garcia MD 09/29/2019 08:09 P
[2019-09-29] MEDS: PANTOPRAZOLE 40MG INJ (PROTONIX) (C9113) IV SCH (19:38)
[2019-09-29 20:55] LABS: HEMATOCRIT 37.8 % (42.0-52.0); HEMOGLOBIN 12.7 g/dl (13.5-17.5); MEAN CORPUSCULAR HEMOGLOBIN 31.1 pg (27.0-33.0); MEAN CORPUSCULAR HGB CONC 33.6 g/dl (32.0-36.5); MEAN CORPUSCULAR VOLUME 92.6 fl (80.0-96.0); PLATELET COUNT, AUTOMATED 194 10^3/uL (150-450); RED BLOOD COUNT 4.08 10^6/uL (4.30-6.10); WHITE BLOOD COUNT 6.2 10^3/uL (4.0-10.0)
[2019-09-29 21:18] LABS: BILIRUBIN,TOTAL 3.8 MG/DL (0.2-1.0); CALCIUM LEVEL 8.4 MG/DL (8.8-10.2); CREATININE FOR GFR 1.71 MG/DL (0.70-1.30); GLOMERULAR FILTRATION RATE 40.7 (>35); POTASSIUM SERUM 4.3 MEQ/L (3.5-5.1); TOTAL PROTEIN 5.7 GM/DL (6.4-8.2)
[2019-09-29 22:00] VITALS: BP 143/79
[2019-09-30 00:08] LABS: HEMATOCRIT 34.1 % (42.0-52.0); HEMOGLOBIN 11.8 g/dl (13.5-17.5); MEAN CORPUSCULAR HEMOGLOBIN 31.6 pg (27.0-33.0); MEAN CORPUSCULAR HGB CONC 34.6 g/dl (32.0-36.5); MEAN CORPUSCULAR VOLUME 91.4 fl (80.0-96.0); PLATELET COUNT, AUTOMATED 188 10^3/uL (150-450); RED BLOOD COUNT 3.73 10^6/uL (4.30-6.10); WHITE BLOOD COUNT 4.2 10^3/uL (4.0-10.0)
[2019-09-30 00:52] LABS: ALBUMIN 2.8 GM/DL (3.2-5.2); BILIRUBIN,TOTAL 3.1 MG/DL (0.2-1.0); CALCIUM LEVEL 8.3 MG/DL (8.8-10.2); CREATININE FOR GFR 1.67 MG/DL (0.70-1.30); GLOMERULAR FILTRATION RATE 41.8 (>35); POTASSIUM SERUM 4.2 MEQ/L (3.5-5.1); TOTAL PROTEIN 5.4 GM/DL (6.4-8.2)
[2019-09-30] MEDS: CIPROFLOXACIN 200 MG in IV 1 EA IV SCH (02:36)
[2019-09-30] MEDS: ONDANSETRON 4MG/2ML VIAL (J2405) IV SCH ×2 (05:04→12:00)
[2019-09-30] MEDS: LR 1,000 ML IV SCH ×2 (05:04→11:45)
[2019-09-30] MEDS: metroNIDAZOLE 500 MG in IV 1 EA IV SCH ×2 (05:05→12:00)
[2019-09-30 06:00] VITALS: BP 155/80
[2019-09-30 06:09] LABS: BASO % 0.2 % (0.0-1.0); HEMATOCRIT 36.2 % (42.0-52.0); HEMOGLOBIN 12.5 g/dl (13.5-17.5); LYMPH # 0.7 10^3/uL (1.5-5.0); LYMPH % 14.3 % (24.0-44.0); MEAN CORPUSCULAR HEMOGLOBIN 31.3 pg (27.0-33.0); MEAN CORPUSCULAR HGB CONC 34.5 g/dl (32.0-36.5); MEAN CORPUSCULAR VOLUME 90.5 fl (80.0-96.0); MONO # 0.3 10^3/uL (0.0-0.8); MONO % 6.6 % (0.0-5.0); NEUTROPHILS # 3.6 10^3/uL (1.5-8.5); NEUTROPHILS % 78.5 % (36.0-66.0); PLATELET COUNT, AUTOMATED 214 10^3/uL (150-450); WHITE BLOOD COUNT 4.6 10^3/uL (4.0-10.0)
[2019-09-30 06:41] LABS: BILIRUBIN,TOTAL 2.5 MG/DL (0.2-1.0); CALCIUM LEVEL 8.6 MG/DL (8.8-10.2); CREATININE FOR GFR 1.73 MG/DL (0.70-1.30); GLOMERULAR FILTRATION RATE 40.2 (>35); POTASSIUM SERUM 4.3 MEQ/L (3.5-5.1); TOTAL PROTEIN 6.3 GM/DL (6.4-8.2)
--- NOTE | 2019-09-30 11:10 | IPNPDOC ---
Subjective Date Seen The patient was seen on 09/30/19. Subjective Chief Complaint/HPI Patient confused at night . Pulled out 3 IVs. now does not have an IV . Will advance to clear liquids. Denies any abdominal pain, says he is hungry. No nausea or vomiting or diarreha. No fever or chills. Objective Physical Examination General Exam: Positive: Alert, Cooperative, No Acute Distress Eye Exam: Positive: PERRLA, Conjunctiva & lids normal, EOMI; Negative: Sclera icteric ENT Exam: Positive: Atraumatic, Mucous membr. moist/pink, Pharynx Normal Neck Exam: Positive: Supple; Negative: JVD, thyromegaly Chest Exam: Positive: Clear to auscultation, Normal air movement Heart Exam: Positive: Rate Normal, Regular Rhythm, Normal S1, Normal S2; Negative: Murmurs, Rubs Telemetry: Positive: No significant arrhythmia Abdomen Exam: Positive: Normal bowel sounds, Soft, Tenderness (in the epigastrium and right upper quadrant.) Extremity Exam: Positive: Normal pulses; Negative: Clubbing, Cyanosis, Edema Skin Exam: Positive: Nl turgor and temperature; Negative: Breakdown, Lesion Neuro Exam: Positive: Normal Speech, Strength at 5/5 X4 ext, Normal Tone, Sensation Intact Psych Exam: Positive: Mood NL, Oriented x 3 Assessment /Plan Assessment 83 [facility] male [facility] patient with PMH of Dementia presented to the ED with severe sudden onset upper abdominal pain and episode of syncope at home. Patient has dementia so not a good historian. His son who is at bed side tells me that he was ok in the morning had a good breakfast then about half an hour later he sat down in the living room couch clutching his abdomen and complained of severe pain and then passed out on his side on the couch and the son then called EMS. As per son he was probably out for about 2 minutes patient denies passing out. When EMS arrived in about 20 minutes he was awake and alert and could walk out to the ambulance. On my interview patient complained of dull aching pain in the epigastrium and right upper quadrant about 5/10 in intensity without any radiation. He described the pain as someone had punched him there. In the ED work up with CT abdomen showed Distended gallbladder containing multiple large stones, largest is 3.8 cm in diameter. There is intrahepatic and extrahepatic biliary dilatation, the common bile duct measures 12-13 mm in maximum diameter. There are four gallstones in the common bile duct, as discussed above, the largest measures 13 mm in diameter. US of gall bladder showed Large gallstones and sludge ball seen in the gallbladder. Biliary dilatation up to 12 mm with internal debris and probable stone. Pateint was admitted for possible Biliary colic and syncope. Biliary colic with choledocolithiais and obstruction. ERCP: on 09/29/19 : - Multiple Non-bleeding duodenal diverticula. - The major papilla was adjacent to a diverticulum. - The major papilla appeared to be bulging. - The entire main bile duct was dilated, with a stones causing obstruction. - Choledocholithiasis was found. Complete removal was accomplished by biliary sphincterotomy, mechanical lithotripsy and balloon extraction. - A biliary sphincterotomy was performed. - Lithotripsy was successful. - The biliary tree was swept. Will advance to clear liquids. No NSAIDS or ASA will refer to surgeon. continue cipro and flagyl. Syncope this is possibly vasovagal from severe episode of pain No events on telemetry. CT head negative orthostatic vitals negative CKD stage 3 creatinine at baseline. Dementia not on any meds independent in ADLS, poor short term memory. Ambulatory Does not wander. Plan/VTE VTE Prophylaxis Ordered?: Yes VS, I&O, 24H, Fishbone Vital Signs/I&O Vital Signs Date Time Temp Pulse Resp B/P (MAP) Pulse Ox O2 Delivery O2 Flow Rate FiO2 09/30/19 06:00 98.1 92 16 155/80 (105) 95 Room Air I&O- Last 24 Hours up to 6 AM 09/30/19 05:59 Intake Total 3075 ml Output Total 600 ml Balance 2475 ml Laboratory Data 24H LABS Laboratory Tests 2 09/29/19 20:40: Nucleated Red Blood Cells % (auto) 0.0, Anion Gap 7L, Glomerular Filtration Rate 40.7, Calcium Level 8.4L, Total Bilirubin 3.8H, Aspartate Amino Transf (AST/SGOT) 98H, Alanine Aminotransferase (ALT/SGPT) 174H, Alkaline Phosphatase 111, Total Protein 5.7L, Albumin 3.0#L, Albumin/Globulin Ratio 1.11 09/29/19 23:49: Nucleated Red Blood Cells % (auto) 0.0, Anion Gap 8, Glomerular Filtration Rate 41.8, Calcium Level 8.3L, Total Bilirubin 3.1H, Aspartate Amino Transf (AST/SGOT) 86H, Alanine Aminotransferase (ALT/SGPT) 157H, Alkaline Phosphatase 99, Total Protein 5.4L, Albumin 2.8L, Albumin/Globulin Ratio 1.08 09/30/19 05:22: Nucleated Red Blood Cells % (auto) 0.0, Anion Gap 6L, Glomerular Filtration Rate 40.2, Calcium Level 8.6L, Total Bilirubin 2.5H, Aspartate Amino Transf (AST/SGOT) 84H, Alanine Aminotransferase (ALT/SGPT) 159H, Alkaline Phosphatase 103, Total Protein 6.3L, Albumin 3.0L, Albumin/Globulin Ratio 0.91L, Immature Granulocyte % (Auto) 0.4, Neutrophils (%) (Auto) 78.5H, Lymphocytes (%) (Auto) 14.3L, Monocytes (%) (Auto) 6.6H, Eosinophils (%) (Auto) 0.0, Basophils (%) (Aut o) 0.2, Neutrophils # (Auto) 3.6, Lymphocytes # (Auto) 0.7L, Monocytes # (Auto) 0.3, Eosinophils # (Auto) 0.0, Basophils # (Auto) 0.0 CBC/BMP Laboratory Tests 09/29/19 20:40 09/29/19 23:49 09/30/19 05:22 KORY HOWELL MD Sep 30, 2019 11:10
[2019-09-30 14:00] VITALS: BP 152/78
[2019-09-30] MEDS ORDERED: ONDANSETRON 4 MG TAB (S0181) PO PRN (14:00)
[2019-09-30] MEDS ORDERED: metroNIDAZOLE (FLAGYL) 500 MG TAB PO SCH (14:00)
[2019-09-30] MEDS ORDERED: CIPROFLOXACIN 500 MG TAB PO ONE (14:15)
--- NOTE | 2019-09-30 15:41 | DS.PDOC ---
Discharge Summary General Date of Admission Sep 27, 2019 at 15:20 Date of Discharge 09/30/19 Discharge Summary PROCEDURES PERFORMED DURING STAY: ERCP with biliary sphincterotomy, mechanical lithotripsy and balloon extraction. DISCHARGE DIAGNOSES: Choledocolithiasis with cholelithiasis CBD obstruction and biliary colic Vasovagal syncope Dementia CKD stage 3 COMPLICATIONS/CHIEF COMPLAINT: Biliary Colic. HISTORY OF PRESENT ILLNESS: See History and physical HOSPITAL COURSE: 83 [facility] male [facility] patient with PMH of Dementia presented to the ED with severe sudden onset upper abdominal pain and episode of syncope at home. Patient has dementia so not a good historian. His son who is at bed side tells me that he was ok in the morning had a good breakfast then about half an hour later he sat down in the living room couch clutching his abdomen and complained of severe pain and then passed out on his side on the couch and the son then called EMS. As per son he was probably out for about 2 minutes patient denies passing out. When EMS arrived in about 20 minutes he was awake and alert and could walk out to the ambulance. On my interview patient complained of dull aching pain in the epigastrium and right upper quadrant about 5/10 in intensity without any radiation. He described the pain as someone had punched him there. In the ED work up with CT abdomen showed Distended gallbladder containing multiple large stones, largest is 3.8 cm in diameter. There is intrahepatic and extrahepatic biliary dilatation, the common bile duct measures 12-13 mm in maximum diameter. There are four gallstones in the common bile duct, as discussed above, the largest measures 13 mm in diameter. US of gall bladder showed Large gallstones and sludge ball seen in the gallbladder. Biliary dilatation up to 12 mm with internal debris and probable stone. Pateint was admitted for possible Biliary colic and syncope. Biliary colic with choledocolithiais and obstruction. ERCP: on 09/29/19 : - Multiple Non-bleeding duodenal diverticula. - The major papilla was adjacent to a diverticulum. - The major papilla appeared to be bulging. - The entire main bile duct was dilated, with a stones causing obstruction. - Choledocholithiasis was found. Complete removal was accomplished by biliary sphincterotomy, mechanical lithotripsy and balloon extraction. - A biliary sphincterotomy was performed. - Lithotripsy was successful. - The biliary tree was swept. will advance diet to low fat low cholesterol , small meals. referred to surgery as outpatient for cholecystectomy. Syncope this vasovagal syncope from severe episode of pain No events on telemetry. CT head negative orthostatic vitals negative CKD stage 3 creatinine at baseline. Dementia not on any meds independent in ADLS, poor short term memory. Ambulatory Does not wander. DISCHARGE MEDICATIONS: Please see below. ALLERGIES: Please see below. PHYSICAL EXAMINATION ON DISCHARGE: VITAL SIGNS: Please see below. General Exam: Positive: Alert, Cooperative, No Acute Distress Eye Exam: Positive: PERRLA, Conjunctiva & lids normal, EOMI; Negative: Sclera icteric ENT Exam: Positive: Atraumatic, Mucous membr. moist/pink, Pharynx Normal Neck Exam: Positive: Supple; Negative: JVD, thyromegaly Chest Exam: Positive: Clear to auscultation, Normal air movement Heart Exam: Positive: Rate Normal, Regular Rhythm, Normal S1, Normal S2; Negative: Murmurs, Rubs Telemetry: Positive: No significant arrhythmia Abdomen Exam: Positive: Normal bowel sounds, Soft, Tenderness (in the epigastrium and right upper quadrant.) Extremity Exam: Positive: Normal pulses; Negative: Clubbing, Cyanosis, Edema Skin Exam: Positive: Nl turgor and temperature; Negative: Breakdown, Lesion Neuro Exam: Positive: Normal Speech, Strength at 5/5 X4 ext, Normal Tone, Sensation Intact Psych Exam: Positive: Mood NL, Oriented x 3 LABORATORY DATA: Please see below. ACTIVITY: [As tolerated]. DIET: Low fat and low cholesterol , small meals. DISCHARGE PLAN: Home DISCHARGE INSTRUCTIONS: Referral given to Dr Arroyo in 2 weeks PMD in 1 to 2 weeks DISCHARGE CONDITION: [Stable]. TIME SPENT ON DISCHARGE: 35 minutes. Vital Signs/I&Os Vital Signs Date Time Temp Pulse Resp B/P (MAP) Pulse Ox O2 Delivery O2 Flow Rate FiO2 09/30/19 14:00 98.2 88 16 152/78 (102) 96 Room Air I&O- Last 24 Hours up to 6 AM 09/30/19 05:59 Intake Total 3075 ml Output Total 600 ml Balance 2475 ml Laboratory Data Labs 24H Laboratory Tests 2 09/29/19 20:40: Nucleated Red Blood Cells % (auto) 0.0, Anion Gap 7L, Glomerular Filtration Rate 40.7, Calcium Level 8.4L, Total Bilirubin 3.8H, Aspartate Amino Transf (AST/SGOT) 98H, Alanine Aminotransferase (ALT/SGPT) 174H, Alkaline Phosphatase 111, Total Protein 5.7L, Albumin 3.0#L, Albumin/Globulin Ratio 1.11 09/29/19 23:49: Nucleated Red Blood Cells % (auto) 0.0, Anion Gap 8, Glomerular Filtration Rate 41.8, Calcium Level 8.3L, Total Bilirubin 3.1H, Aspartate Amino Transf (AST/SGOT) 86H, Alanine Aminotransferase (ALT/SGPT) 157H, Alkaline Phosphatase 99, Total Protein 5.4L, Albumin 2.8L, Albumin/Globulin Ratio 1.08 09/30/19 05:22: Nucleated Red Blood Cells % (auto) 0.0, Anion Gap 6L, Glomerular Filtration Rate 40.2, Calcium Level 8.6L, Total Bilirubin 2.5H, Aspartate Amino Transf (AST/SGOT) 84H, Alanine Aminotransferase (ALT/SGPT) 159H, Alkaline Phosphatase 103, Total Protein 6.3L, Albumin 3.0L, Albumin/Globulin Ratio 0.91L, Immature Granulocyte % (Auto) 0.4, Neutrophils (%) (Auto) 78.5H, Lymphocytes (%) (Auto) 14.3L, Monocytes (%) (Auto) 6.6H, Eosinophils (%) (Auto) 0.0, Basophils (%) (Auto) 0.2, Neutrophils # (Auto) 3.6, Lymphocytes # (Auto) 0.7L, Monocytes # (Auto) 0.3, Eosinophils # (Auto) 0.0, Basophils # (Auto) 0.0 CBC/BMP Laboratory Tests 09/29/19 20:40 09/29/19 23:49 09/30/19 05:22 Discharge Medications No Active Prescriptions or Reported Meds Allergies Coded Allergies: No Known Allergies (Unverified , 09/27/19) KORY HOWELL MD Sep 30, 2019 15:41
[2019-09-30] MEDS ORDERED: CIPROFLOXACIN 250 MG TAB PO SCH (18:00)
[2019-10-01] MEDS ORDERED: CIPROFLOXACIN 500 MG TAB PO SCH (06:00)
== END 2019-09-30 15:59 | disposition home or self-care (01) | DRG 446 ==
LOC: M ED 10:41 → EDBD 10:41 → M ED INP 15:20 → ENRESERV 15:31 → M MSPAV 16:52
PROVIDERS: ADMIT Internal Medicine Nephrology; ATTEND Internal Medicine Nephrology
PROC: 0FC98ZZ Extirpation of Matter from Common Bile Duct, Via Natural or Artificial Opening Endoscopic (ICD-10-PCS; principal; 2019-09-29 15:00)
DX: K80.71 Calculus of gallbladder and bile duct without cholecystitis with obstruction (principal); N18.3 Chronic kidney disease, stage 3 (moderate); F03.90 Unspecified dementia, unspecified severity, without behavioral disturbance, psychotic disturbance, mood disturbance, and anxiety; R55 Syncope and collapse; K57.50 Diverticulosis of both small and large intestine without perforation or abscess without bleeding

== ENCOUNTER → 2019-11-28 | Outpatient (CLI) | payer MEDICARE, OTHER | LOC: M LABSMTC 11:28 | PROVIDERS: ATTEND Anesthesiology | DX: Z01.818 Encounter for other preprocedural examination (principal); Z11.59 Encounter for screening for other viral diseases ==

== ENCOUNTER 2019-12-01 10:19 | Day surgery (SDC) | payer MEDICARE, OTHER ==
[~2019-12-01] VITALS: Ht 167.6 cm; Wt 57.2 kg
[~2019-12-01 10:19] MED LIST changes: +AMPICILLIN SOD/SULBACTAM SOD 3 GM in D5W MINI-BAG PLUS 100 ML IV ONE; +LIDOCAINE 2% 100MG/5ML SDV (FOR ANES.) As Ordered ONE; +LR 1,000 ML IV ONE; +MIDAZOLAM INJ 2MG/2ML VIAL (J2250 PER 1MG) As Ordered ONE; +ONDANSETRON 4MG/2ML VIAL As Ordered ONE; +ROCURONIUM BROMIDE 50 MG/5 ML VIAL As Ordered ONE; +dexameTHASONE 4 MG/ML 1ML VIAL (J1100 PER 1MG) As Ordered ONE; +fentaNYL 250 MCG/5 ML INJECTION (J3010) As Ordered ONE; +propofoL 200 MG/20 ML VIAL As Ordered ONE
[2019-12-01] MEDS ORDERED: LIDOCAINE 1% SDV 30ML VIAL As Ordered ONE (12:23)
[2019-12-01] MEDS ORDERED: BUPIVACAINE HCL 0.25% 30ML VIAL As Ordered ONE (12:24)
[2019-12-01] MEDS ORDERED: CONRAY-60 60% 50ML VIAL (Q9961) As Ordered ONE (12:53)
[2019-12-01] MEDS ORDERED: SUGAMMADEX SODIUM 500 MG/5 ML VIAL (BRIDION) As Ordered ONE (13:02)
[2019-12-01] MEDS ORDERED: ACETAMINOPHEN 1000MG 100ML IV BTL (OFIRMEV) (J0131 PER 10MG) As Ordered ONE (13:05)
[2019-12-01] MEDS ORDERED: GLUCAGON INJ 1MG VIAL As Ordered ONE (13:18)
[2019-12-01] MEDS ORDERED: ePHEDrine SULFATE 25 MG/5 ML(5MG/ML) SYRINGE As Ordered ONE (13:21)
--- NOTE | 2019-12-01 14:51 | REP ---
C-ARM VIEWS ABDOMEN DURING INTRAOPERATIVE CHOLANGIOGRAM: Patient had laparoscopic cholecystectomy with intraoperative cholangiogram. Multiple images are obtained during contrast injection into the biliary system. There is no persistent filling defect that would suggest the presence of retained stone in the common bile duct. No definite stricture is seen of the common bile duct. There is free flow of contrast into the duodenum. 80 seconds of fluoroscopy time is utilized. Electronically Signed by Alexys Kemp MD 12/01/2019 03:59 P
[2019-12-01] MEDS ORDERED: fentaNYL 100 MCG/2 ML INJECTION (J3010) IV PRN (15:00)
[2019-12-01] MEDS ORDERED: HYDROMORPHONE HCL 0.5 MG/ 0.5 ML SYRINGE (J1170 PER 1) IV PRN (15:00)
[2019-12-01] MEDS ORDERED: ONDANSETRON 4MG/2ML VIAL IV PRN ×2 (15:00→15:15)
[2019-12-01] MEDS ORDERED: LR 1,000 ML IV SCH (15:00)
[2019-12-01] MEDS ORDERED: NORCO, ANEXSIA 5/325MG TABLET (HYDROcodone/ACETAMINOPHEN) PO PRN (15:15)
[2019-12-01] MEDS ORDERED: KETOROLAC 30 MG/ML 1ML VIAL IV PRN (15:15)
[2019-12-01] MEDS ORDERED: hydrALAZINE 20MG/ML 1ML VIAL (J0360 PER 20MG) As Ordered ONE (15:40)
[2019-12-01] MEDS: hydrALAZINE 20MG/ML 1ML VIAL (J0360 PER 20MG) IV PRN ×4 (15:40→15:55)
[2019-12-01 15:55] VITALS: BP 154/75
[2019-12-01 18:15] VITALS: BP 109/55
== END 2019-12-01 18:35 | disposition home or self-care (01) ==
LOC: M SDC 10:19
PROVIDERS: ATTEND Surgery
DX: K80.20 Calculus of gallbladder without cholecystitis without obstruction (principal); F03.90 Unspecified dementia, unspecified severity, without behavioral disturbance, psychotic disturbance, mood disturbance, and anxiety
CPT/HCPCS: 47563; 76000; 88304; J0131; J0360; J1100; J1610; J2250; J2405; J3010; Q9961

== ENCOUNTER 2020-05-10 19:18 | Emergency (ER) | payer MEDICARE, OTHER ==
[~2020-05-10 19:18] MED LIST changes: -AMPICILLIN SOD/SULBACTAM SOD 3 GM in D5W MINI-BAG PLUS 100 ML IV ONE; -LIDOCAINE 2% 100MG/5ML SDV (FOR ANES.) As Ordered ONE; -LR 1,000 ML IV ONE; -MIDAZOLAM INJ 2MG/2ML VIAL (J2250 PER 1MG) As Ordered ONE; -ONDANSETRON 4MG/2ML VIAL As Ordered ONE; -ROCURONIUM BROMIDE 50 MG/5 ML VIAL As Ordered ONE; -dexameTHASONE 4 MG/ML 1ML VIAL (J1100 PER 1MG) As Ordered ONE; -fentaNYL 250 MCG/5 ML INJECTION (J3010) As Ordered ONE; -propofoL 200 MG/20 ML VIAL As Ordered ONE
[2020-05-10 20:11] LABS: BASO % 0.4 % (0.0-1.0); EOS # 0.2 10^3/uL (0.0-0.5); EOS % 2.3 % (0.0-3.0); HEMATOCRIT 36.4 % (42.0-52.0); LYMPH # 1.2 10^3/uL (1.5-5.0); LYMPH % 17.9 % (24.0-44.0); MEAN CORPUSCULAR HEMOGLOBIN 30.7 pg (27.0-33.0); MEAN CORPUSCULAR VOLUME 93.1 fl (80.0-96.0); MONO # 0.7 10^3/uL (0.0-0.8); MONO % 9.6 % (0.0-5.0); NEUTROPHILS # 4.8 10^3/uL (1.5-8.5); NEUTROPHILS % 69.7 % (36.0-66.0); PLATELET COUNT, AUTOMATED 250 10^3/uL (150-450); RED BLOOD COUNT 3.91 10^6/uL (4.30-6.10); WHITE BLOOD COUNT 6.9 10^3/uL (4.0-10.0)
[2020-05-10 20:21] LABS: INR 1.03; PARTIAL THROMBOPLASTIN TIME 27.2 SECONDS (24.2-38.5); PROTHROMBIN TIME 13.7 SECONDS (12.5-14.3)
--- NOTE | 2020-05-10 20:33 | REPVR ---
PROCEDURE INFORMATION: Exam: XR Chest, 1 View Exam date and time: 05/10/2020 8:17 PM Age: 84 years old Clinical indication: Chest pain; Type not specified; Additional info: Trauma TECHNIQUE: Imaging protocol: XR of the chest Views: 1 view. COMPARISON: No relevant prior studies available. FINDINGS: Lungs: Unremarkable. No significant consolidation. Increased markings both lung bases likely represents atelectasis. Pleural space: Unremarkable. No pleural effusion. No pneumothorax. Heart/Mediastinum: Unremarkable. No cardiomegaly. Vasculature: Uncoiled thoracic aorta. Bones/joints: Osteoporosis. The spine demonstrates moderate degenerative changes. IMPRESSION: No acute findings. Electronically signed by: Patrice Claros On 05/10/2020 20:33:08 PM
--- NOTE | 2020-05-10 20:33 | REPVR ---
PROCEDURE INFORMATION: Exam: XR Pelvis Exam date and time: 05/10/2020 8:17 PM Age: 84 years old Clinical indication: Pelvic pain; Additional info: Trauma TECHNIQUE: Imaging protocol: XR pelvis. Views: 1 or 2 view. COMPARISON: CT ABD PELVIS W/O CONTRAST 09/27/2019 12:09 PM FINDINGS: Bones/joints: Degenerative arthropathy both hip joints. Soft tissues: Unremarkable. Vasculature: Numerous phleboliths in the pelvis. IMPRESSION: No acute findings. Electronically signed by: Patrice Claros On 05/10/2020 20:33:45 PM
[2020-05-10 20:35] LABS: AMPHETAMINES LEVEL URINE NEGATIVE (NEGATIVE); BARBITURATES URINE NEGATIVE (NEGATIVE); BENZODIAZEPINES URINE NEGATIVE (NEGATIVE); CANNABINOIDS URINE NEGATIVE (NEGATIVE); COCAINE METABOLITE URINE NEGATIVE (NEGATIVE); METHADONE URINE NEGATIVE (NEGATIVE); OPIATES URINE NEGATIVE (NEGATIVE); PHENCYCLIDINE URINE NEGATIVE (NEGATIVE)
[2020-05-10 20:39] LABS: ALBUMIN 3.5 GM/DL (3.2-5.2); ALT/SGPT 22 U/L (12-78); BILIRUBIN,DIRECT 0.1 MG/DL (0.0-0.2); BILIRUBIN,TOTAL 0.4 MG/DL (0.2-1.0); BLOOD UREA NITROGEN 23 MG/DL (7-18); CALCIUM LEVEL 8.8 MG/DL (8.8-10.2); CARBON DIOXIDE LEVEL 27 MEQ/L (21-32); CHLORIDE LEVEL 109 MEQ/L (98-107); CK-MB VALUE MASS 7.7 NG/ML (<3.6); CPK CREATINE PHOSPHOKINASE 329 U/L (39-308); CREATININE FOR GFR 1.96 MG/DL (0.70-1.30); ETHYL ALCOHOL (ETHANOL) < 0.003 % (0.000-0.010); GLOMERULAR FILTRATION RATE 34.7 (>35); GLUCOSE, FASTING 101 MG/DL (70-100); MB/CK RELATIVE INDEX 2.34 (< OR =4); POTASSIUM SERUM 4.7 MEQ/L (3.5-5.1); SODIUM LEVEL 140 MEQ/L (136-145); TOTAL PROTEIN 6.8 GM/DL (6.4-8.2); TROPONIN I 0.09 NG/ML (< 0.10)
[2020-05-10] MEDS ORDERED: DERMABOND TOPICAL SKIN ADHESIVE TOP ONE (21:00)
[2020-05-10] MEDS ORDERED: BOOSTRIX/ADACEL VACCINE (DIPHTH/PERTUSS/ACELL/TETANUS) 0.5ML SYR IM ONE (21:30)
--- NOTE | 2020-05-10 21:30 | REPVR ---
PROCEDURE INFORMATION: Exam: CT Maxillofacial Without Contrast Exam date and time: 05/10/2020 8:48 PM Age: 84 years old Clinical indication: Injury or trauma; Fall; Blunt trauma (contusions or hematomas); Nose and orbit/periorbital; Bilateral TECHNIQUE: Imaging protocol: Computed tomography images of the face without contrast. Radiation optimization: All CT scans at this facility use at least one of these dose optimization techniques: automated exposure control; mA and/or kV adjustment per patient size (includes targeted exams where dose is matched to clinical indication); or iterative reconstruction. COMPARISON: No relevant prior studies available. FINDINGS: Orbital cavity: No orbital hemorrhage. Bones/joints: There are degenerative changes involving the cervical spine. No acute fracture or dislocation. Paranasal sinuses: Moderate to severe paranasal sinus disease including nonspecific fluid within the right maxillary sinus. Soft tissues: Left supraorbital/frontal scalp soft tissue injury. Nasal cavity: There are polypoid lesions involving the bilateral nasal cavities measuring up to 3.9 cm on the left. Vasculature: Vascular calcifications. IMPRESSION: 1. No acute facial bone fracture. 2. 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 Electronically signed by: Alirio Johnson On 05/10/2020 21:29:57 PM
--- NOTE | 2020-05-10 21:33 | REPVR ---
PROCEDURE INFORMATION: Exam: CT Cervical Spine Without Contrast Exam date and time: 05/10/2020 8:48 PM Age: 84 years old Clinical indication: Injury or trauma; Fall; Blunt trauma TECHNIQUE: Imaging protocol: Computed tomography images of the cervical spine without contrast. Radiation optimization: All CT scans at this facility use at least one of these dose optimization techniques: automated exposure control; mA and/or kV adjustment per patient size (includes targeted exams where dose is matched to clinical indication); or iterative reconstruction. COMPARISON: No relevant prior studies available. FINDINGS: Vertebrae: Nonspecific straightening. Grade 1 anterolisthesis of C4 on C5. Trace retrolisthesis of C5 on C6. Vertebral body heights are preserved. Moderate degenerative change about the dens. Mild to moderate prevertebral osteophytosis. There are bilateral facet joint degenerative changes. No acute cervical spine fracture. Discs/Spinal canal/Neural foramina: No definite significant central canal stenosis within limitations of technique. Scattered cervical foraminal stenoses. Soft tissues: Unremarkable. Lungs: Lung apices are normal. Pleural space: No visible pneumothorax. Vasculature: Vascular calcification. IMPRESSION: No acute cervical spine fracture. Electronically signed by: Alirio Johnson On 05/10/2020 21:33:43 PM
--- NOTE | 2020-05-10 21:35 | REPVR ---
PROCEDURE INFORMATION: Exam: CT Head Without Contrast Exam date and time: 05/10/2020 8:48 PM Age: 84 years old Clinical indication: Injury or trauma; Fall; Blunt trauma (contusions or hematomas) TECHNIQUE: Imaging protocol: Computed tomography of the head without contrast. Radiation optimization: All CT scans at this facility use at least one of these dose optimization techniques: automated exposure control; mA and/or kV adjustment per patient size (includes targeted exams where dose is matched to clinical indication); or iterative reconstruction. COMPARISON: CT Head without contrast 09/27/2019 3:55 PM FINDINGS: Brain: Decreased attenuation of the supratentorial white matter is likely secondary to chronic microvascular ischemia. No acute intracranial hemorrhage. Cerebral ventricles: Ventricular and subarachnoid spaces are age appropriate. Bones/joints: No acute calvarial fracture. Paranasal sinuses: Sinonasal disease and polyposis is better demonstrated on dedicated examination. Mastoid air cells: Visualized mastoid air cells are well aerated. Vasculature: Intracranial vascular calcification. Soft tissues: Left supraorbital/frontal scalp soft tissue injury. IMPRESSION: No acute intracranial abnormality. Electronically signed by: Alirio Johnson On 05/10/2020 21:35:24 PM
--- NOTE | 2020-05-10 21:38 | REPVR ---
PROCEDURE INFORMATION: Exam: CT Abdomen And Pelvis Without Contrast Exam date and time: 05/10/2020 8:48 PM Age: 84 years old Clinical indication: Injury or trauma; Fall; Blunt; Generalized TECHNIQUE: Imaging protocol: Computed tomography of the abdomen and pelvis without contrast. Radiation optimization: All CT scans at this facility use at least one of these dose optimization techniques: automated exposure control; mA and/or kV adjustment per patient size (includes targeted exams where dose is matched to clinical indication); or iterative reconstruction. COMPARISON: CT ABD PELVIS W/O CONTRAST 09/27/2019 12:09 PM FINDINGS: Lungs: Slight bibasilar interstitial prominence with minimal fibro-atelectatic change, right greater than left and question of minimal ground-glass infiltrates. Liver: The liver and spleen are grossly intact on this noncontrast scan. No perihepatic or perisplenic fluid collections are identified. Gallbladder and bile ducts: Absent gallbladder. Pancreas: Coarse calcifications of the pancreas suggesting residua of prior pancreatitis. Spleen: Normal. No splenomegaly. Adrenals: Normal. No mass. Kidneys and ureters: There are bilateral renal cysts measuring up to 23 mm on the left with a Hounsfield measurement of 11 and 2.2 cm on the right with a Hounsfield measurement of 2 consistent with simple cysts which are unchanged from the prior study. No follow-up imaging is recommended. Stomach and bowel: There is part diverticula projecting from the duodenal sweep. Minimal sigmoid diverticulosis without diverticulitis. Appendix: A normal appendix is seen. Intraperitoneal space: Unremarkable. No free air. No significant fluid collection. Vasculature: Coronary artery calcifications are present. There is mild calcification of the abdominal aorta with extension into the iliac arteries. Lymph nodes: Unremarkable. No enlarged lymph nodes. Urinary bladder: There is bladder wall thickening, however, the bladder is nondistended and is nonspecific. Reproductive: Unremarkable as visualized. Bones/joints: Fusion of the SI joints. Moderately prominent wedge compression of L1 and slight wedge configuration of L2 and L3 which appear to be chronic and are unchanged from the prior study. Facet arthropathy is noted in the lower lumbar spine. Soft tissues: Unremarkable. IMPRESSION: 1. Interval cholecystectomy since 09/27/2019. 2. Slight bibasilar interstitial prominence with minimal fibro-atelectatic change and question of minimal ground-glass infiltrates which are similar to the prior study. 3. Minimal sigmoid diverticulosis without diverticulitis. 4. There is bladder wall thickening, however, the bladder is nondistended and is nonspecific. 5. Compression of L1 with slight wedge configuration of L2 and L3 which are unchanged from the prior study. No acute interval fracture. Electronically signed by: Farooq Mclaughlin On 05/10/2020 21:38:18 PM
--- NOTE | 2020-05-10 21:42 | REPVR ---
PROCEDURE INFORMATION: Exam: CT Thoracic Spine Without Contrast Exam date and time: 05/10/2020 8:48 PM Age: 84 years old Clinical indication: Injury or trauma; Fall; Blunt trauma (contusions or hematomas) TECHNIQUE: Imaging protocol: Computed tomography images of the thoracic spine without contrast. Radiation optimization: All CT scans at this facility use at least one of these dose optimization techniques: automated exposure control; mA and/or kV adjustment per patient size (includes targeted exams where dose is matched to clinical indication); or iterative reconstruction. COMPARISON: No relevant prior studies available. FINDINGS: Vertebrae: Moderately prominent wedge compression of L1. No significant degenerative changes are noted and facets. Discs/Spinal canal/Neural foramina: Mild to moderate degenerative spurring in the mid and lower thoracic spine. There is no spinal or foraminal stenosis. Soft tissues: Unremarkable. Lungs: The lungs demonstrate slight interstitial prominence with minimal fibro-atelectatic change. IMPRESSION: 1. Mild to moderate degenerative spurring in the mid and lower thoracic spine. 2. Prominent compression of L1 which is chronic. 3. Otherwise negative CT thoracic spine. No fracture or subluxation is evident and no spinal or foraminal stenosis. Electronically signed by: Farooq Mclaughlin On 05/10/2020 21:42:33 PM
[2020-05-10 21:45] VITALS: BP 148/70
--- NOTE | 2020-05-10 21:47 | REPVR ---
PROCEDURE INFORMATION: Exam: CT Lumbar Spine Without Contrast Exam date and time: 05/10/2020 8:48 PM Age: 84 years old Clinical indication: Injury or trauma; Fall; Blunt trauma (contusions or hematomas) TECHNIQUE: Imaging protocol: Computed tomography images of the lumbar spine without contrast. Radiation optimization: All CT scans at this facility use at least one of these dose optimization techniques: automated exposure control; mA and/or kV adjustment per patient size (includes targeted exams where dose is matched to clinical indication); or iterative reconstruction. COMPARISON: No relevant prior studies available. FINDINGS: Vertebrae: Moderately prominent compression of L1 with slight anterior wedge configuration of L2 and L3 which are chronic and unchanged from 09/27/2019. L1-L2: Compression of L1 with mild retropulsion and mild interspace narrowing with vacuum phenomenon. There is minimal facet arthropathy with no spinal stenosis. There is borderline bilateral neural foraminal stenosis. L2-L3: Mild interspace narrowing with degenerative vacuum phenomenon and minimal diffuse bulge of the disc with loss of posterior concavity. There is mild facet arthropathy with no significant spinal stenosis. There is borderline left neural foraminal stenosis. L3-L4: Moderate interspace narrowing with vacuum phenomenon and minimal broad-based posterior protrusion of the disc with loss of posterior concavity. There is mild facet arthropathy with no spinal stenosis. There is mild left neural foraminal stenosis. L4-L5: Moderately prominent interspace narrowing with vacuum phenomenon and slight retrolisthesis with minimal broad-based posterior osteophytes and moderate facet arthropathy. The spinal canal is of adequate size. There is mild left and moderate right neural foraminal stenosis. L5-S1: The disc is within normal limits for height with minimal broad-based posterior central and posterolateral protrusions of the disc and mild facet arthropathy. No spinal stenosis. There is borderline right neural foraminal stenosis. Soft tissues: The paravertebral soft tissues are normal. IMPRESSION: 1. Moderately prominent compression of L1 with retropulsion in slight anterior wedge configuration of L2 and L3 which are unchanged from 09/27/2019. No acute interval fracture or compression. 2. Multilevel degenerative disc changes with facet arthropathy with no significant spinal stenosis. There are varying degrees of multilevel neural foraminal stenosis. Electronically signed by: Farooq Mclaughlin On 05/10/2020 21:47:20 PM
--- NOTE | 2020-05-10 21:51 | REPVR ---
PROCEDURE INFORMATION: Exam: CT Chest Without Contrast Exam date and time: 05/10/2020 8:48 PM Age: 84 years old Clinical indication: Injury or trauma; Fall; Blunt trauma (contusions or hematomas) TECHNIQUE: Imaging protocol: Computed tomography of the chest without contrast. Radiation optimization: All CT scans at this facility use at least one of these dose optimization techniques: automated exposure control; mA and/or kV adjustment per patient size (includes targeted exams where dose is matched to clinical indication); or iterative reconstruction. COMPARISON: CR PORTABLE CHEST X-RAY 05/10/2020 8:08 PM FINDINGS: Lungs: Minimal interstitial prominence with minimal bibasilar fibro-atelectatic change. Pleural space: Unremarkable. No pneumothorax. No pleural effusion. Heart: Coronary artery calcifications are present. Pulmonary arteries: The main pulmonary artery measures 25 mm. Aorta: The ascending thoracic aorta measures 39 mm. Lymph nodes: Unremarkable. No enlarged lymph nodes. Bones/joints: Unremarkable. No acute fracture. Soft tissues: Unremarkable. IMPRESSION: 1. Minimal interstitial prominence with minimal bibasilar fibro-atelectatic change. 2. Otherwise negative CT chest. No acute posttraumatic change is seen. Electronically signed by: Farooq Mclaughlin On 05/10/2020 21:50:40 PM
== END 2020-05-10 22:50 | disposition home or self-care (01) ==
LOC: M ED 19:18
DX: S01.81XA Laceration without foreign body of other part of head, initial encounter (principal); S50.312A Abrasion of left elbow, initial encounter; W18.39XA Other fall on same level, initial encounter; Y92.410 Unspecified street and highway as the place of occurrence of the external cause; G30.9 Alzheimer's disease, unspecified; F02.80 Dementia in other diseases classified elsewhere, unspecified severity, without behavioral disturbance, psychotic disturbance, mood disturbance, and anxiety; E78.5 Hyperlipidemia, unspecified
CPT/HCPCS: 12011; 70450; 70486; 71045; 71250; 72125; 72128; 72131; 72170; 74176; 80048; 80076; 80307; 81001; 82550; 82553; 83605; 84484; 85025; 85610; 85730; 86850; 86900; 86901; 90471; 90715; 93041; 94760; 99285; G0480

== ENCOUNTER 2021-04-02 17:50 | Inpatient (IN) | payer MEDICARE ==
[~2021-04-02] VITALS: Ht 162.6 cm; Wt 48.7 kg
[~2021-04-02 17:50] MED LIST changes: -DOXY100C37 PO; +DOXY1CAP62 PO
[2021-04-02 20:13] LABS: BASO % 0.3 % (0.0-1.0); EOS # 0.2 10^3/uL (0.0-0.5); EOS % 2.6 % (0.0-3.0); HEMATOCRIT 34.3 % (42.0-52.0); HEMOGLOBIN 11.6 g/dl (13.5-17.5); LYMPH # 2.9 10^3/uL (1.5-5.0); LYMPH % 37.1 % (24.0-44.0); MEAN CORPUSCULAR HEMOGLOBIN 32.7 pg (27.0-33.0); MEAN CORPUSCULAR HGB CONC 33.8 g/dl (32.0-36.5); MEAN CORPUSCULAR VOLUME 96.6 fl (80.0-96.0); MONO # 0.8 10^3/uL (0.0-0.8); MONO % 9.7 % (2.0-8.0); NEUTROPHILS # 3.9 10^3/uL (1.5-8.5); NEUTROPHILS % 49.9 % (36.0-66.0); PLATELET COUNT, AUTOMATED 252 10^3/uL (150-450); RED BLOOD COUNT 3.55 10^6/uL (4.30-6.10); WHITE BLOOD COUNT 7.8 10^3/uL (4.0-10.0)
--- NOTE | 2021-04-02 20:29 | REPVR ---
PROCEDURE INFORMATION: Exam: CT Head Without Contrast Exam date and time: 04/02/2021 7:57 PM Age: 85 years old Clinical indication: Altered mental status/memory loss TECHNIQUE: Imaging protocol: Computed tomography of the head without contrast. Radiation optimization: All CT scans at this facility use at least one of these dose optimization techniques: automated exposure control; mA and/or kV adjustment per patient size (includes targeted exams where dose is matched to clinical indication); or iterative reconstruction. COMPARISON: CT Head without contrast 05/10/2020 8:42 PM FINDINGS: Brain: Decreased attenuation of the supratentorial white matter is likely secondary to chronic microvascular ischemia. No acute intracranial hemorrhage. Chronic left parietal lobe infarct. Cerebral ventricles: Ventricular and subarachnoid spaces are age appropriate. Paranasal sinuses: Severe frontal and ethmoid sinus disease. Mastoid air cells: Visualized mastoid air cells are well aerated. Vasculature: Intracranial vascular calcification. Bones/joints: Unremarkable. No acute fracture. Soft tissues: Unremarkable. IMPRESSION: No acute intracranial abnormality. Electronically signed by: Alirio Johnson On 04/02/2021 20:29:01 PM
[2021-04-02 21:02] LABS: OSMOLALITY SERUM 300 MOSM/KG (280-301)
[2021-04-02 21:04] LABS: ACETAMINOPHEN LEVEL < 2.0 UG/ML (10.0-30.0); ALBUMIN 3.5 GM/DL (3.2-5.2); ALT/SGPT 27 U/L (12-78); BILIRUBIN,DIRECT 0.2 MG/DL (0.0-0.2); BILIRUBIN,TOTAL 0.7 MG/DL (0.2-1.0); BLOOD UREA NITROGEN 23 MG/DL (7-18); CALCIUM LEVEL 9.1 MG/DL (8.8-10.2); CARBON DIOXIDE LEVEL 24 MEQ/L (21-32); CHLORIDE LEVEL 114 MEQ/L (98-107); CK-MB VALUE MASS 2.5 NG/ML (<3.6); CPK CREATINE PHOSPHOKINASE 132 U/L (39-308); CREATININE FOR GFR 2.46 MG/DL (0.70-1.30); ETHYL ALCOHOL (ETHANOL) < 0.003 % (0.000-0.010); GLOMERULAR FILTRATION RATE 26.6 (>35); GLUCOSE, FASTING 81 MG/DL (70-100); MB/CK RELATIVE INDEX 1.89 (< OR =4); POTASSIUM SERUM 4.1 MEQ/L (3.5-5.1); SALICYLATE LEVEL < 1.7 MG/DL (5.0-30.0); SODIUM LEVEL 145 MEQ/L (136-145); TOTAL PROTEIN 6.9 GM/DL (6.4-8.2); TROPONIN I < 0.02 NG/ML (< 0.10)
[2021-04-02 21:07] LABS: RSV AMPLIFICATION NEGATIVE (NEGATIVE)
--- NOTE | 2021-04-02 21:10 | REPVR ---
PROCEDURE INFORMATION: Exam: XR Chest Exam date and time: 04/02/2021 7:59 PM Age: 85 years old Clinical indication: Other: Altered mental status TECHNIQUE: Imaging protocol: XR of the chest. Views: 1 view. COMPARISON: CT Chest without contrast 05/10/2020 8:48 PM FINDINGS: Lungs: Lungs are hyperinflated. No consolidation. Pleural spaces: Unremarkable. No pleural effusion. No pneumothorax. Heart/Mediastinum: Unremarkable. No cardiomegaly. Vasculature: Elongation of the thoracic aorta. Bones/joints: Osteopenia. There are degenerative changes involving the spine. IMPRESSION: No acute cardiopulmonary process. Electronically signed by: Alirio Johnson On 04/02/2021 21:10:20 PM
[2021-04-02] MEDS ORDERED: NS 1,000 ML IV ONE (22:00)
[2021-04-02 23:34] LABS: AMPHETAMINES LEVEL URINE NEGATIVE (NEGATIVE); BARBITURATES URINE NEGATIVE (NEGATIVE); BENZODIAZEPINES URINE NEGATIVE (NEGATIVE); CANNABINOIDS URINE NEGATIVE (NEGATIVE); COCAINE METABOLITE URINE NEGATIVE (NEGATIVE); METHADONE URINE NEGATIVE (NEGATIVE); OPIATES URINE NEGATIVE (NEGATIVE); PHENCYCLIDINE URINE NEGATIVE (NEGATIVE)
[2021-04-03] MEDS ORDERED: ACETAMINOPHEN TAB 650MG DOSE (2X325MG) PO PRN (01:35)
--- NOTE | 2021-04-03 02:03 | HPEPDOC ---
General Date of Admission April 03, 2021 Date of Service: Apr 03, 2021 Chief Complaint The patient is a 85-year-old male admitted with a reason for visit of MHE. Source: RN/MD History of Present Illness Mr. Momin is a 85-year-old male with dementia who is here with JESSIE. Due to patient's dementia, he is a poor historian. ED provider tells me that patient's wandering has becoming worse and was brought in by the police. Patient has been following neurology, Dr. ROMAN for his dementia. ED provider has been trying to get in contact with patient's son but has not been able to. When I saw patient, he appears to be resting comfortably with sitter in the room. To protect his IV site, has been covered. Patient does not know where he is or why he is here. Patient cannot tell me the last thing that he remembered. Patient denies any pain and denies any shortness of breath. Vital signs are stable. UA was not suggestive of infection. Urine tox is negative. Lab is significant for an elevation of creatinine to 2.46. Patient's baseline creatinine is around 1.7. Otherwise I did try to reach out to patient's son, but I was not able to reach him. Patient will be placed in observation for JESSIE on CKD Home Medications No Active Prescriptions or Reported Meds Allergies Coded Allergies: No Known Allergies (Unverified , 09/27/19) Past Medical History Medical History 1. Dementia 2. CKD stage III Surgical History 1. Cholecystectomy Family History Unable to obtain due to patient's dementia Social History * Smoker: Denies Alcohol: rarely A-FIB/CHADSVASC A-FIB History Current/History of A-Fib/PAF?: No Review of Systems Constitutional: Denies: Fever Eyes: Denies: Pain ENT: Denies: Head Aches Skin: Denies: Rash Pulmonary: Denies: Dyspnea Cardiovascular: Denies: Chest Pain Gastrointestinal: Denies: Abdominal Pain Genitourinary: Denies: Dysuria Musculoskeletal: Denies: Joint Pain, Muscle Pain Psych: Reports: Memory Issues Physical Examination General Exam: Positive: Alert, Cooperative Eye Exam: Negative: Sclera icteric ENT Exam: Positive: Atraumatic Chest Exam: Positive: Clear to auscultation; Negative: Rales, Rhonchi, Wheezing Heart Exam: Positive: Rate Normal, Regular Rhythm Abdomen Exam: Positive: Normal bowel sounds, Soft; Negative: Tenderness Extremity Exam: Negative: Edema Neuro Exam: Positive: Cranial Nerves 3-12 NL Psych Exam: Negative: Memory Intact Vital Signs Vital Signs Date Time Temp Pulse Resp B/P (MAP) Pulse Ox O2 Delivery O2 Flow Rate FiO2 04/03/21 00:35 72 16 98 Room Air 04/03/21 00:30 145/74 (97) 04/02/21 19:55 99.3 Laboratory Data Labs 24H Laboratory Tests 2 04/02/21 19:57: Immature Granulocyte % (Auto) 0.4, Neutrophils (%) (Auto) 49.9, Lymphocytes (%) (Auto) 37.1, Monocytes (%) (Auto) 9.7H, Eosinophils (%) (Auto) 2.6, Basophils (%) (Auto) 0.3, Neutrophils # (Auto) 3.9, Lymphocytes # (Auto) 2.9, Monocytes # (Auto) 0.8, Eosinophils # (Auto) 0.2, Basophils # (Auto) 0.0, Nucleated Red Blood Cells % (auto) 0.0, Coronavirus (COVID-19)(PCR) NEGATIVE, Influenza Type A (RT-PCR) NEGATIVE, Influenza Type B (RT-PCR) NEGATIVE, Respiratory Syncytial Virus (PCR) NEGATIVE 04/02/21 19:58: Anion Gap 7L, Glomerular Filtration Rate 26.6L, Osmolality 300, Calcium Level 9.1, Total Bilirubin 0.7, Direct Bilirubin 0.2, Aspartate Amino Transf (AST/SGOT) 24, Alanine Aminotransferase (ALT/SGPT) 27, Alkaline Phosphatase 100, Ammonia < 10, Total Creatine Kinase 132, Creatine Kinase MB 2.5, Creatine Kinase MB Relative Index 1.89, Troponin I < 0.02, Total Protein 6.9, Albumin 3.5, Albumin/Globulin Ratio 1.0, Thyroid Stimulating Hormone (TSH) 2.310, Salicylates Level < 1.7L, Acetaminophen Level < 2.0L, Ethyl Alcohol Level < 0.003 04/02/21 22:54: Urine Color YELLOW, Urine Appearance HAZY, Urine pH 6.0, Urine Specific [place] 1.015, Urine Protein 1+H, Urine Glucose (UA) NEGATIVE, Urine Ketones NEGATIVE, Urine Blood NEGATIVE, Urine Nitrite NEGATIVE, Urine Bilirubin NEGATIVE, Urine Urobilinogen 2.0H, Urine Leukocyte Esterase NEGATIVE, Urine WBC (Auto) 2, Urine RBC (Auto) 1, Urine Hyaline Casts (Auto) 7, Urine Bacteria (Auto) NEGATIVE, Urine Squamous Epithelial Cells 0, Urine Sperm (Auto) , Urine Opiates Screen NEGATIVE, Urine Methadone Screen NEGATIVE, Urine Barbiturates Screen NEGATIVE, Urine Phencyclidine Screen NEGATIVE, Urine Amphetamines Screen NEGATIVE, Urine Benzodiazepines Screen NEGATIVE, Urine Cocaine Metabolite Screen NEGATIVE, Urine Cannabinoids Screen NEGATIVE CBC/BMP Laboratory Tests 04/02/21 19:57 04/02/21 19:58 Assessment/Plan Mr. Momin is a 85-year-old male with dementia who is here with JESSIE. Will hydrate patient. Otherwise, would recommend reaching out to son to understand more of patient story as patient has dementia. Plan / VTE VTE Prophylaxis Ordered?: Yes Plan Plan 1. JESSIE on CKD stage III Baseline creatinine of 1.7 Creatinine on admission 2.46 We will order ultrasound renal to rule out obstructive renal failure We will give IVF 2. Dementia Patient was brought in by police for wandering Would recommend reaching out to son for history Sitter ordered Supportive care 3. DVT prophylaxis SCDs and teds Due to patient's dementia and inability to contact son, patient's med list is unknown. Spoke with med historian. They will try to reach out to the son at 6 AM. GEMINI DURAN DO Apr 03, 2021 02:03
[2021-04-03] MEDS ORDERED: NS 500 ML IV ONE (02:15)
[2021-04-03 03:10] VITALS: BP 143/75
[2021-04-03 06:00] VITALS: BP 127/65
[2021-04-03 06:29] LABS: HEMATOCRIT 29.2 % (42.0-52.0); MEAN CORPUSCULAR HGB CONC 32.5 g/dl (32.0-36.5); MEAN CORPUSCULAR VOLUME 98.3 fl (80.0-96.0); PLATELET COUNT, AUTOMATED 204 10^3/uL (150-450); RED BLOOD COUNT 2.97 10^6/uL (4.30-6.10); WHITE BLOOD COUNT 6.1 10^3/uL (4.0-10.0)
[2021-04-03 06:39] LABS: HEMOGLOBIN 9.5 g/dl (13.5-17.5)
[2021-04-03 06:41] LABS: CALCIUM LEVEL 8.4 MG/DL (8.8-10.2); CREATININE FOR GFR 2.02 MG/DL (0.70-1.30); GLOMERULAR FILTRATION RATE 33.4 (>35)
[2021-04-03] MEDS ORDERED: ATOR80TA59 PO (07:38)
[2021-04-03] MEDS ORDERED: MEMA10TA19 PO (07:38)
[2021-04-03] MEDS ORDERED: ARIP1TAB4 PO (07:38)
[2021-04-03] MEDS ORDERED: HOME MED LIST COMPLETE! XX SCH (07:40)
[2021-04-03] MEDS: THIAMINE 100 MG TAB PO SCH (08:00)
[2021-04-03] MEDS ORDERED: DOCUSATE SODIUM 100MG CAPSULE PO SCH (09:00)
--- NOTE | 2021-04-03 10:00 | REP ---
INDICATION: Acute renal insufficiency. COMPARISON: CT abdomen and pelvis without contrast, 05/10/2020. TECHNIQUE: 2D Doppler ultrasound was obtained through the kidneys and urinary bladder in multiple projections and supplemented by color Doppler. FINDINGS: The right kidney measures 8.6 x 4.9 x 3.7 cm. The renal cortical thickness is normal measuring 11 mm. There is a benign cortical cyst in the upper pole the right kidney measuring 13 x 11 x 8 mm. There is a benign cortical cyst in the lower pole the right kidney measuring 2.4 x 2.3 x 1.9 cm. There is abnormally increased renal parenchymal echogenicity. There is no nephrolithiasis or hydronephrosis. The left kidney measures 7.8 x 3.4 x 2.9 cm. The renal cortical thickness is normal measuring 11 mm. There is a benign cortical cyst in the upper pole of the left kidney measuring 1.8 x 1.8 x 1.4 cm. There is a benign cortical cyst in the interpolar region of the left kidney measuring 9 x 8 x 4 mm. There is abnormally increased renal parenchymal echogenicity. There is no nephrolithiasis or hydronephrosis. The urinary bladder is partially evacuated. There is thickening and trabeculation of the bladder wall consistent with bladder outlet obstruction. IMPRESSION: 1. Increased renal cortical echogenicity bilaterally consistent with medical renal disease. 2. Benign cortical cysts, both kidneys. 3. Thickening and trabeculation of the bladder wall consistent with bladder outlet obstruction. <Electronically signed by Bari Kwon > 04/03/21 [id number]
[2021-04-03] MEDS: FOLIC ACID 1 MG TAB PO SCH (10:44)
[2021-04-03] MEDS: MULTIVITAMINS/MINERALS THERAP 1 TAB PO SCH (10:44)
[2021-04-03 14:00] VITALS: BP 126/64
[2021-04-03] MEDS: ATORVASTATIN 20 MG TAB PO SCH (20:02)
[2021-04-03] MEDS: ARIPiprazole 2 MG TAB PO SCH (20:02)
[2021-04-03 22:00] VITALS: BP 129/66
[2021-04-04 06:00] VITALS: BP 126/62
[2021-04-04 07:26] LABS: HEMATOCRIT 30.4 % (42.0-52.0); HEMOGLOBIN 10.1 g/dl (13.5-17.5); MEAN CORPUSCULAR HEMOGLOBIN 32.2 pg (27.0-33.0); MEAN CORPUSCULAR HGB CONC 33.2 g/dl (32.0-36.5); MEAN CORPUSCULAR VOLUME 96.8 fl (80.0-96.0); PLATELET COUNT, AUTOMATED 213 10^3/uL (150-450); RED BLOOD COUNT 3.14 10^6/uL (4.30-6.10)
[2021-04-04 07:54] LABS: ALBUMIN 2.7 GM/DL (3.2-5.2); BILIRUBIN,TOTAL 0.5 MG/DL (0.2-1.0); CALCIUM LEVEL 8.7 MG/DL (8.8-10.2); CREATININE FOR GFR 1.75 MG/DL (0.70-1.30); GLOMERULAR FILTRATION RATE 39.4 (>35); POTASSIUM SERUM 4.4 MEQ/L (3.5-5.1); TOTAL PROTEIN 5.5 GM/DL (6.4-8.2)
--- NOTE | 2021-04-04 09:10 | IPNPDOC ---
Text Note Date of Service The patient was seen on 04/04/21. NOTE Subjective: Patient seen and examined at bedside. No acute overnight events reported. Patient voices no new medical complaints this morning. Objective: Vital Signs: reviewed and within normal limits General: NAD, lying comfortably in bed HEENT: NC/AT, EOMI, poor dentition Neck: supple, no masses Chest: lungs CTA B/L Heart: +S1S2, RRR Abd: soft, NT, ND, +BS Ext: no edema Skin: no rashes MSK: full ROM at large joints Neuro: no gross focal deficits Psych: alert, awake, pleasantly confused A/P: 85-year-old male with baseline dementia, brought in by police for wandering, f ound to be in acute on chronic kidney injury. #JESSIE on CKD stage III - continues to improve s/p IVF Baseline creatinine of 1.7 Creatinine on admission 2.46 US suspicious for obstructive uropathy - starting flomax #Dementia Patient was brought in by police for wandering - social research assistant c/s Supportive care # DVT prophylaxis SCDs and teds Dispo: pending clinical improvement, PT/OT, and PFS consultation; extensive discussion with son William Orantes yesterday and today - [phone] VS,[place], I+O VS, [place], I+O Laboratory Tests 04/04/21 07:12 Vital Signs Date Time Temp Pulse Resp B/P (MAP) Pulse Ox O2 Delivery O2 Flow Rate FiO2 04/04/21 06:00 97.9 74 18 126/62 (83) 97 Room Air I&O- Last 24 Hours up to 6 AM 04/04/21 06:00 Intake Total 1230 ml Output Total 800 ml Balance 430 ml WILLIAM BELLO MD Apr 04, 2021 09:10
[2021-04-04] MEDS: MULTIVITAMINS/MINERALS THERAP 1 TAB PO SCH (09:25)
[2021-04-04] MEDS: FOLIC ACID 1 MG TAB PO SCH (09:26)
[2021-04-04] MEDS: THIAMINE 100 MG TAB PO SCH (09:26)
[2021-04-04 10:03] LABS: VITAMIN B12 LEVEL 453 PG/ML (247-911)
[2021-04-04 14:00] VITALS: BP 115/58
--- NOTE | 2021-04-04 16:41 | ECGEPIP ---
[facility] - ED Test Date: 2021-04-02 Pat Name: ROXY CHANG Department: Room: [place] [address] Gender: Male Job Recruiter: VERO : 1935 Requested By: ELISE Pierce Order Number: [id number] Reading MD: Thania Martinez Measurements Intervals [place] Rate: 77 P: 68 ME: 148 QRS: 23 QRSD: 74 T: 58 QT: 416 QTc: 470 Interpretive Statements Normal sinus rhythm low voltage limb NSTTW abnormalities increased rate 09/27/19 Electronically Signed on 04-04-2021 16:41:05 EDT by Thania Martinez
[2021-04-04] MEDS: ARIPiprazole 2 MG TAB PO SCH (20:33)
[2021-04-04] MEDS: ATORVASTATIN 20 MG TAB PO SCH (20:33)
[2021-04-04] MEDS: TAMSULOSIN 0.4 MG CAP PO SCH (20:33)
[2021-04-04 22:00] VITALS: BP 151/72
[2021-04-05 06:00] VITALS: BP 119/64
[2021-04-05 08:17] LABS: BASO % 0.5 % (0.0-1.0); EOS # 0.2 10^3/uL (0.0-0.5); EOS % 3.5 % (0.0-3.0); HEMATOCRIT 31.2 % (42.0-52.0); HEMOGLOBIN 10.2 g/dl (13.5-17.5); LYMPH % 29.6 % (24.0-44.0); MEAN CORPUSCULAR HEMOGLOBIN 31.8 pg (27.0-33.0); MEAN CORPUSCULAR HGB CONC 32.7 g/dl (32.0-36.5); MEAN CORPUSCULAR VOLUME 97.2 fl (80.0-96.0); MONO # 0.6 10^3/uL (0.0-0.8); MONO % 9.4 % (2.0-8.0); NEUTROPHILS # 3.7 10^3/uL (1.5-8.5); NEUTROPHILS % 56.7 % (36.0-66.0); PLATELET COUNT, AUTOMATED 216 10^3/uL (150-450); RED BLOOD COUNT 3.21 10^6/uL (4.30-6.10); WHITE BLOOD COUNT 6.6 10^3/uL (4.0-10.0)
[2021-04-05 08:45] LABS: CALCIUM LEVEL 8.8 MG/DL (8.8-10.2); CREATININE FOR GFR 1.69 MG/DL (0.70-1.30); GLOMERULAR FILTRATION RATE 41.1 (>35); MAGNESIUM LEVEL 1.9 MG/DL (1.8-2.4); POTASSIUM SERUM 4.5 MEQ/L (3.5-5.1)
[2021-04-05] MEDS: THIAMINE 100 MG TAB PO SCH (08:46)
[2021-04-05] MEDS: MULTIVITAMINS/MINERALS THERAP 1 TAB PO SCH (08:46)
[2021-04-05] MEDS: FOLIC ACID 1 MG TAB PO SCH (08:46)
--- NOTE | 2021-04-05 11:09 | IPNPDOC ---
Text Note Date of Service The patient was seen on 04/05/21. NOTE Subjective: Patient is a 68-year-old male with a PMHx of Dementia, DLP, CKD3, Suspected BPH, was brought in by police because he was wondering. On arrival, patient was found to have an elevated creatinine and was admitted to the hospital service for further evaluation and treatment. Patient was seen and examined at the bedside. Currently patient is only oriented to person. Denies any chest pain, shortness breath, palpitations, nausea, vomiting, abdominal pain, diarrhea, or urinary discomfort. Objective: Vitals (See below) General: Patient is lying flat in bed, appears to be comfortable without any acute distress. He is oriented to person only, not place or time HEENT: NC, AT CVS: +S1S2 Lungs: Fair air entry b/l, -w/r/r Abdomen: Soft, ND, NT Extremities: - Edema, - Calf tenderness Imaging: CXR 04/02: No acute cardiopulmonary process. CT head 04/02: No acute intracranial abnormality. Renal US 04/03: 1. Increased renal cortical echogenicity bilaterally consistent with medical renal disease. 2. Benign cortical cysts, both kidneys. 3. Thickening and trabeculation of the bladder wall consistent with bladder outlet obstruction. Assessment and plan: s/p JESSIE on CKD3 - Cr appears to be at baseline Baseline creatinine of 1.7; Creatinine on admission of 2.46 c/w Tamsulosin Reported obstructive uropathy based on imaging - Will c/w Bladder scans Dementia - Patient was brought in by police for wandering - PFS on board; looking into emt intermediate placement Depression - c/w Aripiprazole DVT prophylaxis - c/w TEDs/Sequentials - Will start Heparin Disposition: - Pending clinical improvement - PFS on board; will need emt intermediate placement - Son; Allan Momin; [phone] VS,Fishbone, I+O VS, [place]bone, I+O Laboratory Tests 04/05/21 07:51 Vital Signs Date Time Temp Pulse Resp B/P (MAP) Pulse Ox O2 Delivery O2 Flow Rate FiO2 04/05/21 06:00 97.9 96 18 119/64 (82) 99 Room Air I&O- Last 24 Hours up to 6 AM 04/05/21 06:00 Intake Total 1780 ml Output Total 0 ml Balance 1780 ml CELY MANZO MD Apr 05, 2021 11:09
[2021-04-05] MEDS: HEPARIN SOD (PORCINE) 5000UNITS/ML 1ML VIAL/SYRINGE SQ SCH ×2 (13:04→20:25)
[2021-04-05] MEDS: TAMSULOSIN 0.4 MG CAP PO SCH (20:25)
[2021-04-05] MEDS: ATORVASTATIN 20 MG TAB PO SCH (20:25)
[2021-04-05] MEDS: ARIPiprazole 2 MG TAB PO SCH (20:25)
[2021-04-06] MEDS: HEPARIN SOD (PORCINE) 5000UNITS/ML 1ML VIAL/SYRINGE SQ SCH ×3 (05:47→21:15)
[2021-04-06 06:00] VITALS: BP 130/76
[2021-04-06 06:43] LABS: BASO % 0.3 % (0.0-1.0); EOS # 0.3 10^3/uL (0.0-0.5); EOS % 4.2 % (0.0-3.0); HEMATOCRIT 29.4 % (42.0-52.0); HEMOGLOBIN 9.7 g/dl (13.5-17.5); LYMPH # 1.9 10^3/uL (1.5-5.0); LYMPH % 27.3 % (24.0-44.0); MONO # 0.7 10^3/uL (0.0-0.8); MONO % 9.7 % (2.0-8.0); NEUTROPHILS # 4.1 10^3/uL (1.5-8.5); NEUTROPHILS % 58.4 % (36.0-66.0); PLATELET COUNT, AUTOMATED 214 10^3/uL (150-450); RED BLOOD COUNT 3.03 10^6/uL (4.30-6.10); WHITE BLOOD COUNT 6.9 10^3/uL (4.0-10.0)
[2021-04-06 06:54] LABS: CALCIUM LEVEL 8.6 MG/DL (8.8-10.2); CREATININE FOR GFR 1.71 MG/DL (0.70-1.30); GLOMERULAR FILTRATION RATE 40.5 (>35); MAGNESIUM LEVEL 1.9 MG/DL (1.8-2.4); POTASSIUM SERUM 4.9 MEQ/L (3.5-5.1)
[2021-04-06] MEDS: MULTIVITAMINS/MINERALS THERAP 1 TAB PO SCH (08:44)
[2021-04-06] MEDS: THIAMINE 100 MG TAB PO SCH (08:44)
[2021-04-06] MEDS: FOLIC ACID 1 MG TAB PO SCH (08:44)
--- NOTE | 2021-04-06 13:40 | IPNPDOC ---
Text Note Date of Service The patient was seen on 04/06/21. NOTE Subjective: Patient is a 68-year-old male with a PMHx of Dementia, DLP, CKD3, Suspected BPH, was brought in by police because he was wondering. On arrival, patient was found to have an elevated creatinine and was admitted to the hospital service for further evaluation and treatment. Kidney function had improved within 24 hours. Patient was essentially admitted for social reasons. Patient was seen and examined at the bedside. Patient was eating his lunch when I went to see him. Denies any chest pain, shortness breath, palpitations, has not spent any abdominal pain or diarrhea. Reports that he has been able to ambulate. Reports that he is unsure why he is in the hospital. Objective: Vitals (See below) General: Patient is sitting up in bed eating lunch, appears comfortable without any acute distress. He is only oriented to person HEENT: Normocephalic/atraumatic CVS: +S1S2 Lungs: Fair air entry b/l, auscultation is without any wheezing, rales or rhonchi Abdomen: Soft without distention or tenderness Extremities: Lower extremities are without any edema Imaging: CXR 04/02: No acute cardiopulmonary process. CT head 04/02: No acute intracranial abnormality. Renal US 04/03: 1. Increased renal cortical echogenicity bilaterally consistent with medical renal disease. 2. Benign cortical cysts, both kidneys. 3. Thickening and trabeculation of the bladder wall consistent with bladder outlet obstruction. Assessment and plan: s/p JESSIE on CKD3 - Cr appears to be at baseline (1.7) - Creatinine on admission of 2.46 - has since normalized - s/p IV fluids Reported obstructive uropathy based on imaging - c/w Bladder scans - c/w Tamsulosin - Will have outpatient follow up with Urology Dementia - Patient was brought in by police for wandering - Adult protective care has contacted son/healthcare proxy in regards to finding placement - PFS on board; looking into terminal worker placement Depression - c/w Aripiprazole DVT prophylaxis - c/w Heparin Disposition: - Needs placement / Medically cleared since 04/05/2021 - Cancelled ALC based on PFS request - patient remains medically cleared and is here for social reasons - PFS on board; will need intermediate placement - Son; Allan Momin; [phone] VS,Denisse Byrnes+O VS, Marine, I+O Laboratory Tests 04/06/21 05:47 Vital Signs Date Time Temp Pulse Resp B/P (MAP) Pulse Ox O2 Delivery O2 Flow Rate FiO2 04/06/21 06:00 97.3 90 18 130/76 (94) 95 04/05/21 06:00 Room Air I&O- Last 24 Hours up to 6 AM 04/06/21 06:00 Intake Total 540 ml Balance 540 ml CELY MANZO MD Apr 06, 2021 13:06
[2021-04-06] MEDS: ATORVASTATIN 20 MG TAB PO SCH (21:15)
[2021-04-06] MEDS: ARIPiprazole 2 MG TAB PO SCH (21:15)
[2021-04-06] MEDS: TAMSULOSIN 0.4 MG CAP PO SCH (21:15)
[2021-04-07] MEDS: HEPARIN SOD (PORCINE) 5000UNITS/ML 1ML VIAL/SYRINGE SQ SCH ×3 (05:23→21:31)
[2021-04-07 06:00] VITALS: BP 113/56
[2021-04-07 08:05] LABS: BASO % 0.2 % (0.0-1.0); EOS # 0.3 10^3/uL (0.0-0.5); EOS % 5.2 % (0.0-3.0); HEMOGLOBIN 9.6 g/dl (13.5-17.5); LYMPH # 2.1 10^3/uL (1.5-5.0); LYMPH % 38.1 % (24.0-44.0); MEAN CORPUSCULAR HEMOGLOBIN 32.1 pg (27.0-33.0); MEAN CORPUSCULAR HGB CONC 33.1 g/dl (32.0-36.5); MONO # 0.6 10^3/uL (0.0-0.8); MONO % 9.8 % (2.0-8.0); NEUTROPHILS # 2.6 10^3/uL (1.5-8.5); NEUTROPHILS % 46.3 % (36.0-66.0); PLATELET COUNT, AUTOMATED 207 10^3/uL (150-450); RED BLOOD COUNT 2.99 10^6/uL (4.30-6.10); WHITE BLOOD COUNT 5.6 10^3/uL (4.0-10.0)
[2021-04-07 08:29] LABS: CALCIUM LEVEL 9.2 MG/DL (8.8-10.2); CREATININE FOR GFR 1.66 MG/DL (0.70-1.30); GLOMERULAR FILTRATION RATE 41.9 (>35); MAGNESIUM LEVEL 1.9 MG/DL (1.8-2.4); POTASSIUM SERUM 4.6 MEQ/L (3.5-5.1)
[2021-04-07] MEDS: MULTIVITAMINS/MINERALS THERAP 1 TAB PO SCH (09:06)
[2021-04-07] MEDS: THIAMINE 100 MG TAB PO SCH (09:06)
[2021-04-07] MEDS: FOLIC ACID 1 MG TAB PO SCH (09:06)
--- NOTE | 2021-04-07 10:00 | IPNPDOC ---
Text Note Date of Service The patient was seen on 04/07/21. NOTE Subjective: Patient is a 68-year-old male with a PMHx of Dementia, DLP, CKD3, Suspected BPH, was brought in by police because he was wondering. On arrival, patient was found to have an elevated creatinine and was admitted to the hospital service for further evaluation and treatment. Kidney function had improved within 24 hours. Patient was essentially admitted for social reasons. Patient was seen and examined at the bedside. Patient is laying in bed, appears to be comfortable, not in any acute distress, only oriented to person. Denies any chest pain, shortness breath, palpitations. Objective: Vitals (See below) General: Patient is lying in bed, appears to be comfortable, not in any acute distress, just waking up from sleep, is oriented to person HEENT: Atraumatic normocephalic CVS: +S1S2 Lungs: There appears to be fair air entry bilaterally without any auscultated crackles, wheezing, rhonchi Abdomen: Nondistended, nontender and soft Extremities: No edema is appreciated of lower extremities Imaging: CXR 04/02: No acute cardiopulmonary process. CT head 04/02: No acute intracranial abnormality. Renal US 04/03: 1. Increased renal cortical echogenicity bilaterally consistent with medical renal disease. 2. Benign cortical cysts, both kidneys. 3. Thickening and trabeculation of the bladder wall consistent with bladder outlet obstruction. Assessment and plan: s/p JESSIE on CKD3 - Cr appears to be at baseline (1.7) - Creatinine of 2.4 on admission has resolved - s/p IV fluids Reported obstructive uropathy based on imaging - c/w Bladder scans - c/w Tamsulosin - Will have outpatient follow up with Urology Dementia - Patient was brought in by police for wandering - Adult protective care has contacted son/healthcare proxy in regards to finding placement - PFS on board; looking into petroleum terminal plant operator placement - Will transition patient back to ALC status awaiting placement Depression - c/w Aripiprazole DVT prophylaxis - c/w Heparin Disposition: - Needs placement / Medically cleared since 04/05/2021 - PFS on board; will need petroleum terminal plant operator placement - Son; Allan Momin; [phone] - Will transition back to ALC status again today VS,Marine, I+O VS, [place], I+O Laboratory Tests 04/07/21 07:06 Vital Signs Date Time Temp Pulse Resp B/P (MAP) Pulse Ox O2 Delivery O2 Flow Rate FiO2 04/07/21 06:00 98.0 81 20 113/56 (75) 95 Room Air I&O- Last 24 Hours up to 6 AM 04/07/21 05:59 Intake Total 1820 ml Output Total 0 ml Balance 1820 ml CELY MANZO MD Apr 07, 2021 10:00
[2021-04-07] MEDS: ARIPiprazole 2 MG TAB PO SCH (21:31)
[2021-04-07] MEDS: ATORVASTATIN 20 MG TAB PO SCH (21:31)
[2021-04-07] MEDS: TAMSULOSIN 0.4 MG CAP PO SCH (21:31)
[2021-04-08 06:26] LABS: BASO % 0.3 % (0.0-1.0); EOS # 0.3 10^3/uL (0.0-0.5); EOS % 4.5 % (0.0-3.0); HEMATOCRIT 26.7 % (42.0-52.0); LYMPH # 1.6 10^3/uL (1.5-5.0); LYMPH % 28.3 % (24.0-44.0); MEAN CORPUSCULAR HEMOGLOBIN 32.1 pg (27.0-33.0); MEAN CORPUSCULAR HGB CONC 33.7 g/dl (32.0-36.5); MEAN CORPUSCULAR VOLUME 95.4 fl (80.0-96.0); MONO # 0.6 10^3/uL (0.0-0.8); MONO % 10.5 % (2.0-8.0); NEUTROPHILS # 3.2 10^3/uL (1.5-8.5); NEUTROPHILS % 56.2 % (36.0-66.0); PLATELET COUNT, AUTOMATED 198 10^3/uL (150-450); WHITE BLOOD COUNT 5.7 10^3/uL (4.0-10.0)
[2021-04-08] MEDS: HEPARIN SOD (PORCINE) 5000UNITS/ML 1ML VIAL/SYRINGE SQ SCH ×3 (06:41→20:23)
[2021-04-08 06:48] LABS: CALCIUM LEVEL 8.6 MG/DL (8.8-10.2); CREATININE FOR GFR 1.68 MG/DL (0.70-1.30); GLOMERULAR FILTRATION RATE 41.4 (>35); MAGNESIUM LEVEL 1.9 MG/DL (1.8-2.4); POTASSIUM SERUM 4.4 MEQ/L (3.5-5.1)
[2021-04-08] MEDS: FOLIC ACID 1 MG TAB PO SCH (09:30)
[2021-04-08] MEDS: THIAMINE 100 MG TAB PO SCH (09:30)
[2021-04-08] MEDS: MULTIVITAMINS/MINERALS THERAP 1 TAB PO SCH (09:30)
[2021-04-08] MEDS: TAMSULOSIN 0.4 MG CAP PO SCH (20:22)
[2021-04-08] MEDS: ARIPiprazole 2 MG TAB PO SCH (20:22)
[2021-04-08] MEDS: ATORVASTATIN 20 MG TAB PO SCH (20:22)
[2021-04-09 06:00] VITALS: BP 123/69
[2021-04-09] MEDS: HEPARIN SOD (PORCINE) 5000UNITS/ML 1ML VIAL/SYRINGE SQ SCH ×3 (06:03→21:03)
[2021-04-09 07:20] LABS: BASO % 0.5 % (0.0-1.0); EOS # 0.3 10^3/uL (0.0-0.5); EOS % 5.3 % (0.0-3.0); HEMATOCRIT 29.6 % (42.0-52.0); HEMOGLOBIN 9.7 g/dl (13.5-17.5); LYMPH # 2.1 10^3/uL (1.5-5.0); LYMPH % 33.3 % (24.0-44.0); MEAN CORPUSCULAR HEMOGLOBIN 32.1 pg (27.0-33.0); MEAN CORPUSCULAR HGB CONC 32.8 g/dl (32.0-36.5); MONO # 0.7 10^3/uL (0.0-0.8); MONO % 10.1 % (2.0-8.0); NEUTROPHILS # 3.3 10^3/uL (1.5-8.5); NEUTROPHILS % 50.5 % (36.0-66.0); PLATELET COUNT, AUTOMATED 206 10^3/uL (150-450); RED BLOOD COUNT 3.02 10^6/uL (4.30-6.10); WHITE BLOOD COUNT 6.4 10^3/uL (4.0-10.0)
[2021-04-09 07:42] LABS: CALCIUM LEVEL 8.6 MG/DL (8.8-10.2); CREATININE FOR GFR 1.69 MG/DL (0.70-1.30); GLOMERULAR FILTRATION RATE 41.1 (>35); POTASSIUM SERUM 4.8 MEQ/L (3.5-5.1)
[2021-04-09] MEDS: THIAMINE 100 MG TAB PO SCH (08:41)
[2021-04-09] MEDS: FOLIC ACID 1 MG TAB PO SCH (08:41)
[2021-04-09] MEDS: MULTIVITAMINS/MINERALS THERAP 1 TAB PO SCH (08:41)
[2021-04-09] MEDS: ARIPiprazole 2 MG TAB PO SCH (21:03)
[2021-04-09] MEDS: TAMSULOSIN 0.4 MG CAP PO SCH (21:04)
[2021-04-09] MEDS: ATORVASTATIN 20 MG TAB PO SCH (21:04)
[2021-04-10] MEDS: HEPARIN SOD (PORCINE) 5000UNITS/ML 1ML VIAL/SYRINGE SQ SCH ×3 (05:00→21:07)
[2021-04-10 05:02] LABS: BASO % 0.2 % (0.0-1.0); EOS # 0.3 10^3/uL (0.0-0.5); EOS % 4.1 % (0.0-3.0); HEMATOCRIT 26.5 % (42.0-52.0); HEMOGLOBIN 8.7 g/dl (13.5-17.5); LYMPH # 1.8 10^3/uL (1.5-5.0); LYMPH % 27.8 % (24.0-44.0); MEAN CORPUSCULAR HEMOGLOBIN 31.8 pg (27.0-33.0); MEAN CORPUSCULAR HGB CONC 32.8 g/dl (32.0-36.5); MEAN CORPUSCULAR VOLUME 96.7 fl (80.0-96.0); MONO # 0.7 10^3/uL (0.0-0.8); MONO % 11.5 % (2.0-8.0); NEUTROPHILS # 3.6 10^3/uL (1.5-8.5); NEUTROPHILS % 56.2 % (36.0-66.0); PLATELET COUNT, AUTOMATED 190 10^3/uL (150-450); RED BLOOD COUNT 2.74 10^6/uL (4.30-6.10); WHITE BLOOD COUNT 6.3 10^3/uL (4.0-10.0)
[2021-04-10 05:47] LABS: CALCIUM LEVEL 8.5 MG/DL (8.8-10.2); CREATININE FOR GFR 1.9 MG/DL (0.70-1.30); GLOMERULAR FILTRATION RATE 35.9 (>35); MAGNESIUM LEVEL 1.9 MG/DL (1.8-2.4); POTASSIUM SERUM 4.9 MEQ/L (3.5-5.1)
[2021-04-10 06:00] VITALS: BP 103/58
[2021-04-10] MEDS: MULTIVITAMINS/MINERALS THERAP 1 TAB PO SCH (08:26)
[2021-04-10] MEDS: FOLIC ACID 1 MG TAB PO SCH (08:26)
[2021-04-10] MEDS: THIAMINE 100 MG TAB PO SCH (08:26)
[2021-04-10] MEDS: ATORVASTATIN 20 MG TAB PO SCH (21:07)
[2021-04-10] MEDS: ARIPiprazole 2 MG TAB PO SCH (21:07)
[2021-04-10] MEDS: TAMSULOSIN 0.4 MG CAP PO SCH (21:07)
[2021-04-11] MEDS: HEPARIN SOD (PORCINE) 5000UNITS/ML 1ML VIAL/SYRINGE SQ SCH ×3 (05:10→22:10)
[2021-04-11 06:00] VITALS: BP 102/56
[2021-04-11 06:15] LABS: BASO % 0.2 % (0.0-1.0); EOS # 0.3 10^3/uL (0.0-0.5); EOS % 5.3 % (0.0-3.0); HEMATOCRIT 26.4 % (42.0-52.0); HEMOGLOBIN 8.7 g/dl (13.5-17.5); LYMPH # 1.7 10^3/uL (1.5-5.0); LYMPH % 35.7 % (24.0-44.0); MEAN CORPUSCULAR HEMOGLOBIN 32.2 pg (27.0-33.0); MEAN CORPUSCULAR VOLUME 97.8 fl (80.0-96.0); MONO # 0.5 10^3/uL (0.0-0.8); MONO % 11.4 % (2.0-8.0); NEUTROPHILS # 2.2 10^3/uL (1.5-8.5); PLATELET COUNT, AUTOMATED 191 10^3/uL (150-450); WHITE BLOOD COUNT 4.7 10^3/uL (4.0-10.0)
[2021-04-11 06:42] LABS: CALCIUM LEVEL 8.9 MG/DL (8.8-10.2); CREATININE FOR GFR 1.74 MG/DL (0.70-1.30); GLOMERULAR FILTRATION RATE 39.7 (>35); POTASSIUM SERUM 4.6 MEQ/L (3.5-5.1)
[2021-04-11] MEDS: MULTIVITAMINS/MINERALS THERAP 1 TAB PO SCH (09:32)
[2021-04-11] MEDS: THIAMINE 100 MG TAB PO SCH (09:32)
[2021-04-11] MEDS: FOLIC ACID 1 MG TAB PO SCH (09:32)
[2021-04-11] MEDS: ARIPiprazole 2 MG TAB PO SCH (22:10)
[2021-04-11] MEDS: ATORVASTATIN 20 MG TAB PO SCH (22:10)
[2021-04-11] MEDS: TAMSULOSIN 0.4 MG CAP PO SCH (22:10)
[2021-04-12] MEDS: HEPARIN SOD (PORCINE) 5000UNITS/ML 1ML VIAL/SYRINGE SQ SCH (05:08)
[2021-04-12 06:00] VITALS: BP 126/61
[2021-04-12 06:20] LABS: BASO % 0.6 % (0.0-1.0); EOS # 0.3 10^3/uL (0.0-0.5); HEMOGLOBIN 8.9 g/dl (13.5-17.5); LYMPH # 1.9 10^3/uL (1.5-5.0); LYMPH % 37.5 % (24.0-44.0); MEAN CORPUSCULAR VOLUME 97.1 fl (80.0-96.0); MONO # 0.6 10^3/uL (0.0-0.8); MONO % 11.6 % (2.0-8.0); NEUTROPHILS # 2.3 10^3/uL (1.5-8.5); NEUTROPHILS % 44.1 % (36.0-66.0); PLATELET COUNT, AUTOMATED 194 10^3/uL (150-450); RED BLOOD COUNT 2.78 10^6/uL (4.30-6.10); WHITE BLOOD COUNT 5.2 10^3/uL (4.0-10.0)
[2021-04-12 07:04] LABS: CALCIUM LEVEL 8.9 MG/DL (8.8-10.2); CREATININE FOR GFR 1.68 MG/DL (0.70-1.30); GLOMERULAR FILTRATION RATE 41.4 (>35); MAGNESIUM LEVEL 2.1 MG/DL (1.8-2.4); POTASSIUM SERUM 4.6 MEQ/L (3.5-5.1)
[2021-04-12] MEDS: THIAMINE 100 MG TAB PO SCH (09:15)
[2021-04-12] MEDS: FOLIC ACID 1 MG TAB PO SCH (09:15)
[2021-04-12] MEDS: MULTIVITAMINS/MINERALS THERAP 1 TAB PO SCH (09:15)
[2021-04-12] MEDS ORDERED: FOLI1TAB11 PO (11:02)
[2021-04-12] MEDS ORDERED: FLOM0.4C39 PO (11:02)
[2021-04-12] MEDS ORDERED: VITMTA PO (11:02)
[2021-04-12] MEDS ORDERED: THIA100TA PO (11:02)
--- NOTE | 2021-04-12 16:28 | DS.PDOC ---
Discharge Summary General Date of Admission Apr 05, 2021 at 09:34 Date of Discharge 04/12/2021 Attending Physician: WALTER DAVID MD Discharge Summary PROCEDURES PERFORMED DURING STAY: None ADMITTING DIAGNOSES: JESSIE on CKD Dementia DISCHARGE DIAGNOSES: JESSIE on CKD Dementia Obstructive uropathy for which he was started on tamsulosin COMPLICATIONS/CHIEF COMPLAINT: Acute Kidney Superimposed, Dementia. HISTORY OF PRESENT ILLNESS: 85-year-old M with dementia who was brought in by police after being found wandering the streets. HOSPITAL COURSE: In the ED, vital signs were stable. UA was not suggestive of infection. Urine tox was negative. Labs were significant for an elevation of creatinine to 2.46 with baseline creatinine of around 1.7 and was admitted for JESSIE on CKD. His JESSIE resolved with hydration and his course was otherwise uncomplicated. He is now being discharged to a SNF. DISCHARGE MEDICATIONS: Please see below. ALLERGIES: Please see below. PHYSICAL EXAMINATION ON DISCHARGE: VITAL SIGNS: Please see below. General: NAD, appears to be comfortable, oriented to self HEENT: Atraumatic normocephalic, EOMI, MMM CVS: +S1S2 Lungs: CTAB, no crackles, wheezing, rhonchi Abdomen: Nondistended, nontender and soft Extremities: No edema is appreciated of lower extremities LABORATORY DATA: Please see below. IMAGING: CXR 04/02: No acute cardiopulmonary process. CT head 04/02: No acute intracranial abnormality. Renal US 04/03: 1. Increased renal cortical echogenicity bilaterally consistent with medical renal disease. 2. Benign cortical cysts, both kidneys. 3. Thickening and trabeculation of the bladder wall consistent with bladder outlet obstruction. PROGNOSIS: Good ACTIVITY: As tolerated DIET: regular DISCHARGE PLAN: SNF DISPOSITION: 63 D/[facility] DISCHARGE INSTRUCTIONS: GP/PCP within 7d of hospital discharge ITEMS TO FOLLOWUP ON ON OUTPATIENT: Dementia CKD DISCHARGE CONDITION: Stable TIME SPENT ON DISCHARGE: 40 minutes. Vital Signs/I&Os Vital Signs Date Time Temp Pulse Resp B/P (MAP) Pulse Ox O2 Delivery O2 Flow Rate FiO2 04/12/21 06:00 97.9 80 17 126/61 (82) 98 Room Air I&O- Last 24 Hours up to 6 AM 04/12/21 06:00 Intake Total 720 ml Output Total 0 ml Balance 720 ml Laboratory Data Labs 24H Laboratory Tests 2 04/12/21 05:56: Immature Granulocyte % (Auto) 0.2, Neutrophils (%) (Auto) 44.1, Lymphocytes (%) (Auto) 37.5, Monocytes (%) (Auto) 11.6H, Eosinophils (%) (Auto) 6.0H, Basophils (%) (Auto) 0.6, Neutrophils # (Auto) 2.3, Lymphocytes # (Auto) 1.9, Monocytes # (Auto) 0.6, Eosinophils # (Auto) 0.3, Basophils # (Auto) 0.0, Nucleated Red Blood Cells % (auto) 0.0, Anion Gap 6L, Glomerular Filtration Rate 41.4, Calcium Level 8.9, Magnesium Level 2.1 CBC/BMP Laboratory Tests 04/12/21 05:56 Discharge Medications Scheduled Aripiprazole (Aripiprazole) 2 Mg Tablet, 2 MG PO QPM, (Reported) @ [facility]NER Atorvastatin Calcium (Atorvastatin Calcium) 80 Mg Tablet, 80 MG PO QPM, (Reported) @ 1800 Folic Acid (Folic Acid) 1 Mg Tablet, 1 MG PO DAILY Memantine HCl (Memantine HCl) 10 Mg Tablet, 10 MG PO BID, (Reported) Multivitamins (Thera M Plus Tablet) 1 Each Tablet, 1 TAB PO DAILY Tamsulosin HCl (Flomax) 0.4 Mg Capsule, 0.4 MG PO QHS Thiamine Hcl (Vitamin B-1) 100 Mg Tablet, 100 MG PO DAILY Allergies Coded Allergies: No Known Allergies (Unverified , 09/27/19) WALTER DAVID MD Apr 12, 2021 16:28
== END 2021-04-12 11:36 | DRG 884 ==
LOC: EDBD 17:50 → M ED 17:50 → M ED INP 17:51 → M MSPAV 04-03 03:10 → OBSVTOIN 04-05 09:34
PROVIDERS: ADMIT Internal Medicine; ATTEND Internal Medicine
DX: F03.90 Unspecified dementia, unspecified severity, without behavioral disturbance, psychotic disturbance, mood disturbance, and anxiety (principal); N17.9 Acute kidney failure, unspecified; N18.30 Chronic kidney disease, stage 3 unspecified; E78.5 Hyperlipidemia, unspecified; N40.1 Benign prostatic hyperplasia with lower urinary tract symptoms; N32.0 Bladder-neck obstruction; F32.9 Major depressive disorder, single episode, unspecified; Z74.3 Need for continuous supervision